=== PATIENT | female | born 1960 | race Caucasian/White ===

== ENCOUNTER 2020-10-31 12:16 | Emergency (ER) | payer OTHER ==
[2020-10-31 15:23] LABS: Absolute Lymphocytes (CBC) 2.5 K/uL (0.7-4.9); Hematocrit 48.8 % (36.0-45.0); Lymphocytes % 32.5 % (15.3-44.8); MPV 9.9 fL (7.6-11.3)
[2020-10-31] MEDS ORDERED: METHYLPREDNISOLONE 125 MG INJ ONE (15:30)
[2020-10-31] MEDS ORDERED: ALBUTEROL 2.5 MG/3 ML NEB SOL ONE (15:31)
[2020-10-31] MEDS ORDERED: IPRATROPIUM BROM 0.5MG/2.5ML ONE (15:31)
[2020-10-31] MEDS ORDERED: AMOX/K CLAV 875 MG TAB ONE (15:31)
[2020-10-31] MEDS ORDERED: predniSONE 20 MG TAB ONE (15:31)
[2020-10-31] MEDS ORDERED: PIPER/TAZO/NS 3.375gm 3.375 GM/100 ML BAG ONE (15:32)
--- NOTE | 2020-10-31 15:38 | RAD REPORT ---
EXAM DESCRIPTION: [place] Single View10/31/2020 3:07 pm CLINICAL HISTORY: Cough COMPARISON: 2010 FINDINGS: The lungs appear clear of acute infiltrate. The heart is normal size IMPRESSION: No acute abnormalities displayed
[2020-10-31 15:49] LABS: ALT/SGPT 28 U/L (12-78); AST/SGOT 22 U/L (15-37); Albumin 4.8 g/dL (3.4-5.0); Alkaline Phosphatase 57 U/L (45-117); BUN Blood Urea Nitrogen 11 mg/dL (7-18); Bicarbonate 26 mmol/L (21-32); Bilirubin Direct 0.1 mg/dL (0-0.2); Bilirubin Total 0.6 mg/dL (0.2-1.0); Glucose Level 89 mg/dL (74-106); Magnesium 2.4 mg/dL (1.8-2.4); NT PRO-BNP 181 pg/mL (<125); Potassium 3.9 mmol/L (3.5-5.1); Protein, Total 8.6 g/dL (6.4-8.2); Sodium Level 140 mmol/L (136-145); Troponin (Emerg Dept Use Only) < 0.02 ng/mL (0.0-0.045)
[2020-10-31] MEDS ORDERED: ONDANSETRON 4 MG/2 ML VIAL ONE (16:00)
[2020-10-31] MEDS ORDERED: MORPHINE 4 MG/ML SYR ONE (16:00)
[2020-10-31] MEDS ORDERED: LEVALBUTEROL 1.25 MG/3 ML NEB ONE (16:16)
--- NOTE | 2020-10-31 16:16 | EDPHYS ---
Physician Documentation [facility] Name: Shannan Singhr Age: 60 yrs Sex: Female : 1960 Arrival Date: 10/31/2020 Time: 12:18 Bed 5 Private MD: Robinson Cota HPI: 10/31 14:53 This 60 yrs old Female presents to ER via Ambulatory with complaints of danielle Breathing Difficulty, Decreased Appetite. Historical: - Allergies: 12:41 No Known Allergies; em - PMHx: 12:41 Chronic pain; em - PSHx: 12:41 Hysterectomy; Appendectomy; Cholecystectomy; Knee surgery; ankle sx; em - Immunization history:: Adult Immunizations up to date. - Social history:: Smoking status: Patient/guardian denies using tobacco, Stopped _ months ago 1. ROS: 14:53 Constitutional: Negative for fever, chills, and weight loss, Eyes: Negative for injury, danielle pain, redness, and discharge, ENT: Negative for injury, pain, and discharge, Neck: Negative for injury, pain, and swelling, Cardiovascular: Negative for chest pain, palpitations, and edema, Abdomen/GI: Negative for abdominal pain, nausea, vomiting, diarrhea, and constipation, Back: Negative for injury and pain, : Negative for injury, bleeding, discharge, and swelling, MS/Extremity: Negative for injury and deformity, Skin: Negative for injury, rash, and discoloration, Neuro: Negative for headache, weakness, numbness, tingling, and seizure, Psych: Negative for depression, anxiety, suicide ideation, homicidal ideation, and hallucinations, Allergy/Immunology: Negative for hives, rash, and allergies, Endocrine: Negative for neck swelling, polydipsia, polyuria, polyphagia, and marked weight changes, Hematologic/Lymphatic: Negative for swollen nodes, abnormal bleeding, and unusual bruising. 14:53 Respiratory: Positive for cough, shortness of breath, at rest. wheezing, inspiratory, expiratory. Exam: 14:53 Constitutional: This is a well developed, well nourished patient who is awake, alert, danielle and in no acute distress. Head/Face: Normocephalic, atraumatic. Eyes: Pupils equal round and reactive to light, extra-ocular motions intact. Lids and lashes normal. Conjunctiva and sclera are non-icteric and not injected. Cornea within normal limits. Periorbital areas with no swelling, redness, or edema. ENT: Nares patent. No nasal discharge, no septal abnormalities noted. Tympanic membranes are normal and external auditory canals are clear. Oropharynx with no redness, swelling, or masses, exudates, or evidence of obstruction, uvula midline. Mucous membranes moist. Neck: Trachea midline, no thyromegaly or masses palpated, and no cervical lymphadenopathy. Supple, full range of motion without nuchal rigidity, or vertebral point tenderness. No Meningismus. Chest/axilla: Normal chest wall appearance and motion. Nontender with no deformity. No lesions are appreciated. Cardiovascular: Regular rate and rhythm with a normal S1 and S2. No gallops, murmurs, or rubs. Normal PMI, no JVD. No pulse deficits. Abdomen/GI: Soft, non-tender, with normal bowel sounds. No distension or tympany. No guarding or rebound. No evidence of tenderness throughout. Back: No spinal tenderness. No costovertebral tenderness. Full range of motion. Female : Normal external genitalia. Skin: Warm, dry with normal turgor. Normal color with no rashes, no lesions, and no evidence of cellulitis. MS/ Extremity: Pulses equal, no cyanosis. Neurovascular intact. Full, normal range of motion. Neuro: Awake and alert, GCS 15, oriented to person, place, time, and situation. Cranial nerves II-XII grossly intact. Motor strength 5/5 in all extremities. Sensory grossly intact. Cerebellar exam normal. Normal gait. Psych: Awake, alert, with orientation to person, place and time. Behavior, mood, and affect are within normal limits. 14:53 Respiratory: the patient does not display signs of respiratory distress, Respirations: normal, no acute changes, Breath sounds: bronchial sounds, decreased breath sounds, rhonchi, stridor, is not appreciated, wheezing: inspiratory expiratory Respiratory rate: 18 15:41 ECG was reviewed by the Attending Physician. danielle 16:14 Musculoskeletal/extremity: ROM: no acute changes, intact in all extremities, full danielle active range of motion, full passive range of motion, Circulation is intact in all extremities. Sensation intact. Compartment Syndrome exam of affected extremity: is normal. DVT Exam: No signs of deep vein thrombosis. no pain, no swelling, no tenderness, negative Homans' sign noted on exam, no appreciated bluish discoloration, no erythema, no increased warmth. Vital Signs: 12:38 BP 172 / 77; Pulse 81; Resp 18; Temp 98.3(O); Pulse Ox 96% on R/A; Weight 69.4 kg; em Height 5 ft. 6 in. (167.64 cm); Pain 6/10; 14:40 BP 153 / 79; Pulse 58; Resp 17; Pulse Ox 99% on R/A; tw2 16:04 BP 141 / 77; Pulse 76; Resp 14; Pulse Ox 100% on Nebulizer Mask; tw2 17:00 BP 113 / 55; Pulse 94; Resp 21; Temp 98; Pulse Ox 98% ; bp 12:38 Body Mass Index 24.69 (69.40 kg, 167.64 cm) em MDM: 14:44 Patient medically screened. danielle 14:53 Differential diagnosis: Anemia Anxiety Reaction asthma, Bronchitis CHF exacerbation, danielle Chronic Obstructive Pulmonary Disease pneumonia, pulmonary edema, reactive airway disease, Sepsis. Antibiotic administration: The patient is discharged and will get outpatient antibiotics, Amoxicillin. The patient's Wells Deep Vein Thrombosis Score was calculated as follows: Total Score: 0-2 Pts- Low Risk. The patient's pulmonary embolism risk score was calculated as follows: Total Score: 0-2 points. This patient was found to be at low risk for a pulmonary embolism by using the Well's assessment criteria. Immunization status: Influenza vaccine: Data reviewed: vital signs, nurses notes, lab test result(s), EKG, radiologic studies. Data interpreted: engine monitor: rate is 81 beats/min, rhythm is regular, Pulse oximetry: on room air is 96 %. Test interpretation: by ED physician or midlevel provider: ECG, plain radiologic studies. Counseling: I had a detailed discussion with the patient and/or guardian regarding: the historical points, exam findings, and any diagnostic results supporting the discharge/admit diagnosis, lab results, radiology results. 10/31 14:49 Order name: Basic Metabolic Panel; Complete Time: 16:14 [facility] 10/31 14:49 Order name: CBC with Diff; Complete Time: 16:14 [facility] 10/31 14:49 Order name: LFT's; Complete Time: 16:14 [facility] 10/31 14:49 Order name: Magnesium; Complete Time: 16:14 [facility] 10/31 14:49 Order name: NT PRO-BNP; Complete Time: 16:14 [facility] 10/31 14:49 Order name: Troponin (emerg Dept Use Only); Complete Time: 16:14 [facility] 10/31 13:20 Order name: Chest Single View XRAY; Complete Time: 16:14 10/31 14:49 Order name: Blood Culture Adult (2) [facility] 10/31 14:49 Order name: COVID-19 [facility] 10/31 14:49 Order name: Flu; Complete Time: 16:14 [facility] 10/31 14:49 Order name: EKG; Complete Time: 14:50 [facility] 10/31 14:49 Order name: Cardiac monitoring; Complete Time: 15:59 [facility] 10/31 14:49 Order name: EKG - Nurse/Tech; Complete Time: 15:59 [facility] 10/31 14:49 Order name: IV Saline Lock; Complete Time: 15:15 [facility] 10/31 14:49 Order name: Labs collected and sent; Complete Time: 15:15 [facility] 10/31 14:49 Order name: O2 Per Protocol; Complete Time: 15:15 [facility] 10/31 14:49 Order name: O2 Sat Monitoring; Complete Time: 15:15 [facility] EC:41 Rate is 63 beats/min. Rhythm is regular. QRS [place] is Normal. NM interval is normal. QRS danielle interval is normal. QT interval is normal. No Q waves. T waves are Normal. No ST changes noted. Clinical impression: NSR w/ Non-specific ST/T Changes and No evidence of ischemia. Interpreted by me. Reviewed by me. Administered Medications: 12:47 Drug: Albuterol - atroVENT (3:1) (2.5 mg - 0.5 mg) 3 ml Route: Nebulizer; tw2 16:24 Follow up: Response: No adverse reaction tw2 15:35 Drug: SOLU-Medrol 125 mg Route: IVP; Site: right forearm; tw2 16:24 Follow up: Response: No adverse reaction tw2 15:38 Drug: predniSONE 20 mg Route: PO; tw2 16:24 Follow up: Response: No adverse reaction tw2 15:50 Drug: Zofran (Ondansetron) 4 mg Route: IVP; Site: right forearm; tw2 16:24 Follow up: Response: No adverse reaction; Nausea is decreased tw2 15:52 Drug: morphine 4 mg {Note: RASS 0.} Route: IVP; Site: right forearm; tw2 16:24 Follow up: Response: No adverse reaction; Pain is decreased; RASS: Alert and Calm (0) tw2 15:53 Drug: Zosyn 3.375 grams Route: IVPB; Infused Over: 60 mins; Site: right forearm; tw2 17:15 Follow up: Response: No adverse reaction; IV Status: Completed infusion; IV Intake: tw2 100ml 16:04 Drug: Augmentin 875 mg Route: PO; tw2 16:24 Follow up: Response: No adverse reaction tw2 16:04 Drug: Xopenex 1.25 mg Route: Inhalation; tw2 Disposition: 10/31/20 16:15 Discharged to Home. Impression: Dyspnea, Chronic obstructive pulmonary disease with (acute) exacerbation, Pneumonia due to other specified bacteria - aspiration, Tobacco abuse counseling, Tobacco use. - Condition is Fair. - Discharge Instructions: Chronic Bronchitis, Chronic Obstructive Pulmonary Disease, How to Use an Inhaler, Shortness of Breath, Steps to Quit Smoking, Smoking Hazards, Shortness of Breath, Xtiq-bv-Shax, Chronic Obstructive Pulmonary Disease Exacerbation, Chronic Obstructive Pulmonary Disease, Hhmg-gz-Kcid, Steps to Quit Smoking, Knaa-br-Yjbn, Cough, Adult, Nqxt-db-Iutg, How to Use a Nebulizer, How to Use an Inhaler, Kxcq-dx-Mbje. - Prescriptions for Augmentin 875- 125 mg Oral Tablet - take 1 tablet by ORAL route every 12 hours for 10 days; 20 tablet. Albuterol Sulfate 2.5 mg /3 mL (0.083 %) Inhalation Solution for Nebulization - inhale 1 unit by NEBULIZATION route every 8 hours As needed; 1 box. Prednisone 20 mg Oral Tablet - take 2 tablet by ORAL route once daily for 5 days; 10 tablet. Albuterol Sulfate 90 mcg/actuation - inhale 1-2 puff by INHALATION route every 4-6 hours; 1 Inhaler. Pepcid 20 mg Oral Tablet - take 1 tablet by ORAL route every 12 hours for 10 days; 20 tablet. - Medication Reconciliation Form, Thank You Letter, Antibiotic Education, Prescription Opioid Use form. - Follow up: Private Physician; When: 2 - 3 days; Reason: Recheck today's complaints, Continuance of care, Re-evaluation by your physician. Follow up: Jayy Ji; When: 2 - 3 days; Reason: Recheck today's complaints, Continuance of care, Re-evaluation by your physician. - Problem is new. - Symptoms have improved. Signatures: Dispatcher [employer] Robinson Morales MD MD cha Munoz, Edgar RN RN em Lynne Taylor RN RN 2 Thomas Martinez RN RN bp Corrections: (The following items were deleted from the chart) 17:23 16:15 10/31/2020 16:15 Discharged to Home. Impression: Dyspnea; Chronic obstructive bp pulmonary disease with (acute) exacerbation; Pneumonia due to other specified bacteria - aspiration; Tobacco abuse counseling; Tobacco use. Condition is Fair. Discharge Instructions: Chronic Bronchitis, Chronic Obstructive Pulmonary Disease, How to Use an Inhaler, Shortness of Breath, Steps to Quit Smoking, Smoking Hazards, Shortness of Breath, Moat-qq-Iqrf, Chronic Obstructive Pulmonary Disease Exacerbation, Chronic Obstructive Pulmonary Disease, Voty-xl-Qqrj, Steps to Quit Smoking, Fris-qi-Zshi, Cough, Adult, Hrhg-nn-Pfbk, How to Use a Nebulizer, How to Use an Inhaler, Wrtv-hz-Gsyu. Prescriptions for Augmentin 875-125 mg Oral Tablet - take 1 tablet by ORAL route every 12 hours for 10 days; 20 tablet, Albuterol Sulfate 2.5 mg /3 mL (0.083 %) Inhalation Solution for Nebulization - inhale 1 unit by NEBULIZATION route every 8 hours As needed; 1 box, Prednisone 20 mg Oral Tablet - take 2 tablet by ORAL route once daily for 5 days; 10 tablet, Albuterol Sulfate 90 mcg/actuation - inhale 1-2 puff by INHALATION route every 4-6 hours; 1 Inhaler. and Forms are Medication Reconciliation Form, Thank You Letter, Antibiotic Education, Prescription Opioid Use. Follow up: Private Physician; When: 2 - 3 days; Reason: Recheck today's complaints, Continuance of care, Re-evaluation by your physician. Follow up: Jayy Ji; When: 2 - 3 days; Reason: Recheck today's complaints, Continuance of care, Re-evaluation by your physician. Problem is new. Symptoms have improved. danielle
--- NOTE | 2020-10-31 16:16 | ER ---
Nurse's Notes [facility] Name: Shannan Leaver Age: 60 yrs Sex: Female : 1960 Arrival Date: 10/31/2020 Time: 12:18 Bed 5 Private MD: Diagnosis: Dyspnea;Chronic obstructive pulmonary disease with (acute) exacerbation;Pneumonia due to other specified bacteria-aspiration;Tobacco abuse counseling;Tobacco use Presentation: 10/31 12:38 Chief complaint: Patient states: had a procedure for chronic pain with ketamine on em Thursday, believes pt had aspirated during procedure, pt reports shortness of breath and cough, denies fever. Coronavirus screen: Client denies travel out of the [place] in the last 14 days. Ebola Screen: Patient negative for fever greater than or equal to 101.5 degrees Fahrenheit, and additional compatible Ebola Virus Disease symptoms Patient denies exposure to infectious person. Patient denies travel to an Ebola-affected area in the 21 days before illness onset. No symptoms or risks identified at this time. Initial Sepsis Screen: Does the patient meet any 2 criteria? No. Patient's initial sepsis screen is negative. Does the patient have a suspected source of infection? No. Patient's initial sepsis screen is negative. Risk Assessment: Do you want to hurt yourself or someone else? Patient reports no desire to harm self or others. Onset of symptoms was October 31, 2020. Onset of symptoms was October 29, 2020. 12:38 Method Of Arrival: Ambulatory em 12:38 Acuity: GEORGETTE 3 em Triage Assessment: 12:40 General: Appears in no apparent distress. comfortable, Behavior is cooperative, bp appropriate for age, anxious. Pain: Denies pain. EENT: No deficits noted. Neuro: No deficits noted. Cardiovascular: No deficits noted. Respiratory: Onset: The symptoms/episode began/occurred yesterday, the patient reports symptoms have resolved. Respiratory: Breath sounds are coarse bilaterally. Respiratory: Airway is patent Respiratory effort is even, unlabored. GI: No signs and/or symptoms were reported involving the gastrointestinal system. : No signs and/or symptoms were reported regarding the genitourinary system. Derm: No deficits noted. Musculoskeletal: No deficits noted. Historical: - Allergies: 12:41 No Known Allergies; em - PMHx: 12:41 Chronic pain; em - PSHx: 12:41 Hysterectomy; Appendectomy; Cholecystectomy; Knee surgery; ankle sx; em - Immunization history:: Adult Immunizations up to date. - Social history:: Smoking status: Patient/guardian denies using tobacco, Stopped _ months ago 1. Screenin:24 Abuse screen: Denies threats or abuse. Nutritional screening: No deficits noted. tw2 Tuberculosis screening: No symptoms or risk factors identified. Fall Risk None identified. Assessment: 14:30 General: Appears in no apparent distress. slender, well groomed, Behavior is calm, tw2 cooperative, appropriate for age. General: Appears Behavior is talkative. Pain: Denies pain. Neuro: Level of Consciousness is awake, alert, obeys commands, Oriented to person, place, time, situation. Cardiovascular: Heart tones S1 S2 Capillary refill < 3 seconds Rhythm is regular. Respiratory: Airway is patent Respiratory effort is even, unlabored, Respiratory pattern is regular, symmetrical. Respiratory: Breath sounds are clear bilaterally. Respiratory: Reports shortness of breath at rest. GI: No signs and/or symptoms were reported involving the gastrointestinal system. Abdomen is flat, Bowel sounds present X 4 quads. : No signs and/or symptoms were reported regarding the genitourinary system. EENT: No signs and/or symptoms were reported regarding the EENT system. Derm: No signs and/or symptoms reported regarding the dermatologic system. Musculoskeletal: Range of motion: intact in all extremities. 15:50 Reassessment: pt states "i take a lot of pain medicine for chronic pain and i have been tw2 waiting and really need something, i know yall cant give me what i take but just anything until i get home", provider notified, medicated as ordered. 16:05 Reassessment: Patient appears in no apparent distress at this time. No changes from tw2 previously documented assessment. Patient and/or family updated on plan of care and expected duration. Pain level reassessed. Patient is alert, oriented x 3, equal unlabored respirations, skin warm/dry/pink. 17:21 Reassessment: PT D/C HOME AMBULATORY, DX WITH DYSPNEA AND PNEUMONIA. bp Vital Signs: 12:38 BP 172 / 77; Pulse 81; Resp 18; Temp 98.3(O); Pulse Ox 96% on R/A; Weight 69.4 kg; em Height 5 ft. 6 in. (167.64 cm); Pain 6/10; 14:40 BP 153 / 79; Pulse 58; Resp 17; Pulse Ox 99% on R/A; tw2 16:04 BP 141 / 77; Pulse 76; Resp 14; Pulse Ox 100% on Nebulizer Mask; tw2 17:00 BP 113 / 55; Pulse 94; Resp 21; Temp 98; Pulse Ox 98% ; bp 12:38 Body Mass Index 24.69 (69.40 kg, 167.64 cm) em ED Course: 12:18 Patient arrived in ED. ag5 12:41 Triage completed. em 12:41 Arm band placed on. em 14:07 Lynne Taylor, FATOU is Primary Nurse. tw2 14:30 Bed in low position. Call light in reach. monitoring engineer on. Pulse ox on. NIBP on. tw2 Warm blanket given. 14:44 Robinson Fajardo MD is Attending Physician. danielle 15:05 Chest Single View XRAY In Process Unspecified. EDMS 15:10 Inserted saline lock: 22 gauge in right forearm, using aseptic technique. Blood tw2 collected. 15:47 Blood Culture Adult (2) Sent. tw2 16:15 Jayy Ji MD is Referral Physician. danielle 16:23 Awaiting: completion of IV abx prior to discharge. tw2 17:00 No provider procedures requiring assistance completed. IV discontinued, intact, bp bleeding controlled, No redness/swelling at site. Pressure dressing applied. Administered Medications: 12:47 Drug: Albuterol - atroVENT (3:1) (2.5 mg - 0.5 mg) 3 ml Route: Nebulizer; tw2 16:24 Follow up: Response: No adverse reaction tw2 15:35 Drug: SOLU-Medrol 125 mg Route: IVP; Site: right forearm; tw2 16:24 Follow up: Response: No adverse reaction tw2 15:38 Drug: predniSONE 20 mg Route: PO; tw2 16:24 Follow up: Response: No adverse reaction tw2 15:50 Drug: Zofran (Ondansetron) 4 mg Route: IVP; Site: right forearm; tw2 16:24 Follow up: Response: No adverse reaction; Nausea is decreased tw2 15:52 Drug: morphine 4 mg {Note: RASS 0.} Route: IVP; Site: right forearm; tw2 16:24 Follow up: Response: No adverse reaction; Pain is decreased; RASS: Alert and Calm (0) tw2 15:53 Drug: Zosyn 3.375 grams Route: IVPB; Infused Over: 60 mins; Site: right forearm; tw2 17:15 Follow up: Response: No adverse reaction; IV Status: Completed infusion; IV Intake: tw2 100ml 16:04 Drug: Augmentin 875 mg Route: PO; tw2 16:24 Follow up: Response: No adverse reaction tw2 16:04 Drug: Xopenex 1.25 mg Route: Inhalation; tw2 Intake: 17:15 IV: 100ml; Total: 100ml. tw2 Outcome: 16:15 Discharge ordered by . danielle 17:00 Discharged to home ambulatory. bp 17:00 Condition: stable 17:00 Discharge instructions given to patient, Instructed on discharge instructions, follow up and referral plans. medication usage, benefits of quitting smoking, Demonstrated understanding of instructions, follow-up care, medications, Prescriptions given X 6 17:23 Patient left the ED. bp Addendum: 11/02/2020 13:18 Addendum: COVID-19 Result: Negative result given to RN to notify pt. Notified pt of d m5 negative COVID 19 swab results. Pt advised that even with a negative test result they should remain in isolation until symptom free for 3 days without medication. Pt also advised to return to the ED for worsening symptoms. Signatures: Dispatcher [employer] Billie Valdez RN RN [id number] Robinson Fajardo MD MD cha Munoz, Edgar, RN RN em Wise, Tara, RN RN 2 Thomas Martinez RN RN bp Gaskin, Ajare [facility]
--- NOTE | 2020-10-31 19:13 | EKG ---
Test Date: 2020-10-31 Test Time: 15:34:55 Showroom Consultant: BUD MEASUREMENT RESULTS: Intervals: Rate: 63 AK: 140 QRSD: 82 QT: 388 QTc: 397 [place]uster: P: 69 AK: 140 QRS: 56 T: 59 INTERPRETIVE STATEMENTS: Sinus rhythm with marked sinus arrhythmia Otherwise normal ECG Compared to ECG 02/26/2012 18:28:37 No significant changes Electronically Signed On 10-31-20 19:12:32 STORE PROTECTION SPECIALIST by Khai Muse
[2020-11-02 04:06] VITALS: BP 113/55; TEMP 98; O2SAT 98
== END 2020-10-31 17:23 | disposition home or self-care (01) ==
LOC: ER 12:16
DX: J44.0 Chronic obstructive pulmonary disease with (acute) lower respiratory infection (principal); J15.8 Pneumonia due to other specified bacteria; J44.1 Chronic obstructive pulmonary disease with (acute) exacerbation; Z20.828 Contact with and (suspected) exposure to other viral communicable diseases; Z72.0 Tobacco use; Z71.6 Tobacco abuse counseling
CPT/HCPCS: 96365; 93005; 87040 ×2; 85025; 80048; 36415; 83735; 80076; 84484; 83880; 87804 ×2; 71045; 96375; 99285; U0002; J2543; J2930; J2405; J7512

== ENCOUNTER 2021-01-15 13:05 | Emergency (ER) | payer OTHER ==
[2021-01-15] MEDS ORDERED: FENTANYL CITR 100 MCG/2 ML ONE (14:42)
[2021-01-15] MEDS ORDERED: ONDANSETRON 4 MG/2 ML VIAL ONE (14:42)
[2021-01-15] MEDS ORDERED: NA CHLORIDE 0.9% 1,000 ML ONE (14:42)
[2021-01-15 14:52] LABS: Absolute Lymphocytes (CBC) 2.5 K/uL (0.7-4.9); Basophils % 1.3 % (0-1.3); Hematocrit 42.2 % (36.0-45.0); Lymphocytes % 41.5 % (15.3-44.8); MPV 10.3 fL (7.6-11.3); RBC Red Blood Cell Count 4.46 M/uL (3.86-4.86)
--- NOTE | 2021-01-15 15:14 | RAD REPORT ---
EXAM DESCRIPTION: CT - Abdomen Pelvis W Contrast - 01/15/2021 2:50 pm CLINICAL HISTORY: ABD PAIN COMPARISON: CT ABD PELVIS W CONTRAST dated 04/15/2009 TECHNIQUE: Biphasic, helical CT imaging of the abdomen and pelvis was performed following 100 ml non -ionic IV contrast. No oral contrast administered. All CT scans are performed using dose optimization technique as appropriate and may include automated exposure control or mA/KV adjustment according to patient size. FINDINGS: No suspicious findings in the lung bases. Mild diffuse fatty infiltration of the liver with no focal liver lesion. No portal vein abnormality s een. Spleen and pancreas show no suspicious findings peer cholecystectomy clips are present. No bilia ry tree dilatation. Symmetric renal function is seen with no hydronephrosis or suspicious renal mass. No pyelonephritis o r acute parenchymal process. No bladder abnormalities. No adrenal abnormalities. Uterus is absent. Ov hamilton are absent or atrophic. No gastric dilatation or wall thickening. No small bowel abnormality. Moderate stool volume throughou t the colon. Rectosigmoid anastomosis shows no suspicious finding. Appendix is absent. No free air, free fluid or inflammatory stranding. No mass or bulky lymphadenopathy. Prominent fat i n the right inguinal canal with no edematous or congested fat. No suspicious bony findings. Lower lumbar disc and bone degenerative changes are present. IMPRESSION: Contrast enhanced CT abdomen and pelvis showing no acute or emergent finding. Nonacute findings detailed in the body of the report.
[2021-01-15 15:15] LABS: Albumin 4.1 g/dL (3.4-5.0); Bilirubin Direct 0.1 mg/dL (0-0.2); Bilirubin Total 0.6 mg/dL (0.2-1.0); Potassium 3.8 mmol/L (3.5-5.1); Protein, Total 7.4 g/dL (6.4-8.2)
[2021-01-15] MEDS ORDERED: MEPERIDINE HCL 25 MG/ML SYR ONE (15:32)
[2021-01-15 15:40] LABS: Urine Blood NEGATIVE (NEG); Urine Glucose NEGATIVE (NEG); Urine Protein NEGATIVE (NEG)
--- NOTE | 2021-01-15 15:46 | EDPHYS ---
Physician Documentation [facility] Name: Shannan Shore Age: 60 yrs Sex: Female : 1960 Arrival Date: 01/15/2021 Time: 13:08 Bed 25 Private MD: ED Physician Stefano An HPI: 01/15 15:56 This 60 yrs old Female presents to ER via Ambulatory with complaints of kb Abdominal Pain. 15:56 The patient presents with abdominal pain in the lower abdomen. Onset: The kb symptoms/episode began/occurred 2 week(s) ago. The symptoms do not radiate. Associated signs and symptoms: none. The symptoms are described as constant. Modifying factors: The symptoms are alleviated by nothing, the symptoms are aggravated by nothing. Severity of pain: At its worst the pain was moderate in the emergency department the pain is unchanged. The patient has not experienced similar symptoms in the past. The patient has been recently seen by a physician:. Historical: - Allergies: 13:38 PENICILLINS; iw 13:38 Levaquin; iw - Home Meds: 13:38 morphine 30 mg Oral TbER 1 tab every 8 hours [Active]; gabapentin 100 mg oral cap daily iw [Active]; - PMHx: 13:38 Chronic pain; complex regional pain syndrome; iw - PSHx: 13:38 Hysterectomy; Appendectomy; Cholecystectomy; Knee surgery; ankle sx; iw - Immunization history:: Adult Immunizations Pneumococcal vaccine is not up to date, Flu vaccine is up to date. - Social history:: Smoking status: Patient/guardian denies using tobacco, the patient reports quitting approximately 20 years ago. ROS: 15:50 Constitutional: Negative for fever, chills, and weight loss, Cardiovascular: Negative kb for chest pain, palpitations, and edema, Respiratory: Negative for shortness of breath, cough, wheezing, and pleuritic chest pain, Back: Negative for injury and pain, MS/Extremity: Negative for injury and deformity, Skin: Negative for injury, rash, and discoloration, Neuro: Negative for headache, weakness, numbness, tingling, and seizure. 15:50 Abdomen/GI: Positive for abdominal pain, Negative for nausea, vomiting, and diarrhea. Exam: 15:50 Constitutional: This is a well developed, well nourished patient who is awake, alert, kb and in no acute distress. Head/Face: Normocephalic, atraumatic. Chest/axilla: Normal chest wall appearance and motion. Nontender with no deformity. No lesions are appreciated. Cardiovascular: Regular rate and rhythm with a normal S1 and S2. No gallops, murmurs, or rubs. Normal PMI, no JVD. No pulse deficits. Respiratory: Lungs have equal breath sounds bilaterally, clear to auscultation and percussion. No rales, rhonchi or wheezes noted. No increased work of breathing, no retractions or nasal flaring. Skin: Warm, dry with normal turgor. Normal color with no rashes, no lesions, and no evidence of cellulitis. MS/ Extremity: Pulses equal, no cyanosis. Neurovascular intact. Full, normal range of motion. Neuro: Awake and alert, GCS 15, oriented to person, place, time, and situation. Cranial nerves II-XII grossly intact. Motor strength 5/5 in all extremities. Sensory grossly intact. Cerebellar exam normal. Normal gait. 15:50 Abdomen/GI: Inspection: abdomen appears normal, Bowel sounds: normal, in all quadrants, Palpation: soft, in all quadrants, mild abdominal tenderness, in the right lower quadrant and left lower quadrant. Vital Signs: 13:34 BP 147 / 82; Pulse 89; Resp 16; Temp 97.9; Pulse Ox 100% on R/A; Weight 69.85 kg; iw Height 5 ft. 6 in. (167.64 cm); Pain 8/10; 16:00 BP 142 / 80; Pulse 80; Resp 16; Pulse Ox 98% on R/A; zb 13:34 Body Mass Index 24.86 (69.85 kg, 167.64 cm) iw MDM: 14:05 Patient medically screened. kb 15:51 Data reviewed: vital signs, nurses notes. Data interpreted: Pulse oximetry: on room air kb is 100 %. Interpretation: normal. 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 01/15 14:17 Order name: Basic Metabolic Panel; Complete Time: 15:21 kb 01/15 14:17 Order name: CBC with Diff; Complete Time: 14:56 kb 01/15 14:17 Order name: Hepatic Function; Complete Time: 15:21 kb 01/15 14:17 Order name: Lipase; Complete Time: 15:21 kb 01/15 14:17 Order name: CT Abd/Pelvis - IV Contrast Only; Complete Time: 15:21 kb 01/15 14:19 Order name: Urine Dipstick--Ancillary (enter results); Complete Time: 15:42 eb 01/15 14:17 Order name: IV Saline Lock; Complete Time: 14:39 kb 01/15 14:17 Order name: Labs collected and sent; Complete Time: 14:39 kb Administered Medications: 14:20 Drug: fentaNYL (PF) 50 mcg Route: IVP; Site: right forearm; zb 15:18 Follow up: Response: No adverse reaction; Pain is unchanged, physician notified; RASS: zb Restless (+1) 14:22 Drug: Zofran (Ondansetron) 4 mg Route: IVP; Site: right forearm; zb 15:18 Follow up: Response: No adverse reaction zb 14:25 Drug: NS 0.9% 1000 ml Route: IV; Rate: 1000 ml; Site: right forearm; zb 16:00 Follow up: Response: No adverse reaction; IV Status: Completed infusion; IV Intake: zb 1000ml 15:16 Drug: Demerol 25 mg Route: IVP; Site: right forearm; zb 16:00 Follow up: Response: No adverse reaction; Pain is decreased; RASS: Alert and Calm (0) zb Disposition: 16:55 Co-signature as Attending Physician, Stefano An MD. rn Disposition: 01/15/21 15:45 Discharged to Home. Impression: Lower abdominal pain, unspecified. - Condition is Stable. - Discharge Instructions: Abdominal Pain, Adult, [id number]. - Medication Reconciliation Form, Thank You Letter, Antibiotic Education, Prescription Opioid Use form. - Follow up: Emergency Department; When: As needed; Reason: Worsening of condition. Follow up: Private Physician; When: 2 - 3 days; Reason: Recheck today's complaints, Continuance of care, Re-evaluation by your physician. Signatures: Dispatcher [employer] EDMS Emely Bardales, STRAIGHTEDGE MAN-C STRAIGHTEDGE MAN-Ckb Megan Bueno, RN Stefano Casiano MD MD rn Brown, Zipporah, RN RN zb Corrections: (The following items were deleted from the chart) 16:04 15:45 01/15/2021 15:45 Discharged to Home. Impression: Lower abdominal pain, zb unspecified. Condition is Stable. Forms are Medication Reconciliation Form, Thank You Letter, Antibiotic Education, Prescription Opioid Use. Follow up: Emergency Department; When: As needed; Reason: Worsening of condition. Follow up: Private Physician; When: 2 - 3 days; Reason: Recheck today's complaints, Continuance of care, Re-evaluation by your physician. kb
--- NOTE | 2021-01-15 15:46 | ER ---
Nurse's Notes [facility] Name: Shannan Shore Age: 60 yrs Sex: Female : 1960 Arrival Date: 01/15/2021 Time: 13:08 Bed 25 Private MD: Diagnosis: Lower abdominal pain, unspecified Presentation: 01/15 13:34 Chief complaint: Patient states: has been having pain in lower abd for past two weeks, iw worse sine Thursday . has been constipated, last BM was yesterday but only a small amount, has hx of cystitis. Coronavirus screen: At this time, the client does not indicate any symptoms associated with coronavirus-19. Ebola Screen: Patient negative for fever greater than or equal to 101.5 degrees Fahrenheit, and additional compatible Ebola Virus Disease symptoms Patient denies exposure to infectious person. Patient denies travel to an Ebola-affected area in the 21 days before illness onset. No symptoms or risks identified at this time. Initial Sepsis Screen: Does the patient meet any 2 criteria? No. Patient's initial sepsis screen is negative. Does the patient have a suspected source of infection? No. Patient's initial sepsis screen is negative. Risk Assessment: Do you want to hurt yourself or someone else? Patient reports no desire to harm self or others. Onset of symptoms was January 08, 2021. 13:34 Method Of Arrival: Ambulatory iw 13:34 Acuity: GEORGETTE 3 iw Historical: - Allergies: 13:38 PENICILLINS; iw 13:38 Levaquin; iw - Home Meds: 13:38 morphine 30 mg Oral TbER 1 tab every 8 hours [Active]; gabapentin 100 mg oral cap daily iw [Active]; - PMHx: 13:38 Chronic pain; complex regional pain syndrome; iw - PSHx: 13:38 Hysterectomy; Appendectomy; Cholecystectomy; Knee surgery; ankle sx; iw - Immunization history:: Adult Immunizations Pneumococcal vaccine is not up to date, Flu vaccine is up to date. - Social history:: Smoking status: Patient/guardian denies using tobacco, the patient reports quitting approximately 20 years ago. Screenin:46 Abuse screen: Denies threats or abuse. Denies injuries from another. Nutritional zb screening: No deficits noted. Tuberculosis screening: No symptoms or risk factors identified. Fall Risk None identified. Assessment: 14:07 Reassessment: ECP at bedside. zb 14:44 General: Appears in no apparent distress. uncomfortable, Behavior is cooperative, zb anxious. Pain: Complains of pain in suprapubic area and left lower quadrant Pain radiates to suprapubic area Pain currently is 8 out of 10 on a pain scale. Quality of pain is described as burning, radiating, sharp, Pain began 2-3 days ago. Is continuous, Alleviated by nothing. Noted to be grimacing, guarding, moaning, Also complains of nausea. Neuro: Level of Consciousness is awake, alert, obeys commands, Oriented to person, place, time, situation. Cardiovascular: Capillary refill < 3 seconds in bilateral Patient's skin is warm and dry. Respiratory: Airway is patent Respiratory effort is even, unlabored, Respiratory pattern is regular, symmetrical. GI: Abdomen is round non-distended, Bowel sounds present X 4 quads. Abd is soft and non tender X 4 quads. Reports lower abdominal pain, bloating, constipation, nausea. : No signs and/or symptoms were reported regarding the genitourinary system. EENT: No signs and/or symptoms were reported regarding the EENT system. Derm: Skin is intact, Skin is dry, Skin is normal, Skin temperature is warm. Musculoskeletal: Range of motion: intact in all extremities. 15:12 Reassessment: Patient and/or family updated on plan of care and expected duration. Pain zb level reassessed. Patient is alert, oriented x 3, equal unlabored respirations, skin warm/dry/pink. patient states that she still in a lot of pain. notified ECP. Vital Signs: 13:34 BP 147 / 82; Pulse 89; Resp 16; Temp 97.9; Pulse Ox 100% on R/A; Weight 69.85 kg; iw Height 5 ft. 6 in. (167.64 cm); Pain 8/10; 16:00 BP 142 / 80; Pulse 80; Resp 16; Pulse Ox 98% on R/A; zb 13:34 Body Mass Index 24.86 (69.85 kg, 167.64 cm) iw ED Course: 13:08 Patient arrived in ED. mr 13:36 Triage completed. iw 13:39 Arm band placed on. iw 13:59 Emely Bardales FNP-C [facility] kb 13:59 Stefano An MD is Attending Physician. kb 14:07 Amy Vera RN is Primary Nurse. zb 14:47 Patient has correct armband on for positive identification. Bed in low position. Call zb light in reach. Side rails up X 1. Pulse ox on. NIBP on. Door closed. Noise minimized. Warm blanket given. 14:50 CT Abd/Pelvis - IV Contrast Only In Process Unspecified. EDMS 16:00 IV discontinued, intact, bleeding controlled, No redness/swelling at site. Pressure zb dressing applied. 16:03 No provider procedures requiring assistance completed. zb Administered Medications: 14:20 Drug: fentaNYL (PF) 50 mcg Route: IVP; Site: right forearm; zb 15:18 Follow up: Response: No adverse reaction; Pain is unchanged, physician notified; RASS: zb Restless (+1) 14:22 Drug: Zofran (Ondansetron) 4 mg Route: IVP; Site: right forearm; zb 15:18 Follow up: Response: No adverse reaction zb 14:25 Drug: NS 0.9% 1000 ml Route: IV; Rate: 1000 ml; Site: right forearm; zb 16:00 Follow up: Response: No adverse reaction; IV Status: Completed infusion; IV Intake: zb 1000ml 15:16 Drug: Demerol 25 mg Route: IVP; Site: right forearm; zb 16:00 Follow up: Response: No adverse reaction; Pain is decreased; RASS: Alert and Calm (0) zb Intake: 16:00 IV: 1000ml; Total: 1000ml. zb Outcome: 15:45 Discharge ordered by . kb 16:00 Discharged to home ambulatory. zb 16:00 Condition: good 16:00 Discharge instructions given to patient, Instructed on discharge instructions, follow up and referral plans. Demonstrated understanding of instructions, follow-up care. 16:04 Patient left the ED. zb Signatures: Dispatcher [employer] EDMS Emely Bardales FNP-C FNP-Bryce Erin Sheppard Megan Bueno, RN FATOU iw Amy Vera RN RN zmikey
[2021-01-15 16:26] VITALS: TEMP 97.9
[2021-01-15 16:27] VITALS: BP 142/80; O2SAT 98
== END 2021-01-15 16:04 | disposition home or self-care (01) ==
LOC: ER 13:05
DX: R10.30 Lower abdominal pain, unspecified (principal); G89.29 Other chronic pain; Z88.0 Allergy status to penicillin; Z88.1 Allergy status to other antibiotic agents
CPT/HCPCS: 96361; 85025; 80048; 36415; 82565; 80076; 81003; 83690; 74177; 96375; 96374; 99283; Q9967; J3010; J2175; J7030; J2405

== ENCOUNTER 2024-09-25 12:25 | Emergency (ER) | payer OTHER ==
--- OUTSIDE RECORDS SUMMARY | 2024-09-25 12:28 | XMS REPORT | Continuity of Care Document ---
Author Name Unknown Address [address] [facility] [address] [place], [place] [id number] [place] [address] 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 Name Role Phone Michelle Conte Attending Clinician Unavail able [email or web address]_S Attending Clinician Unavaila ble [email or web address]_S Admitting Clinician Unavaila ble Payers Payer Name Policy Type Policy Number Effective Date Expirati on Date Source [place]IC[place]: CED [facility] [id number] 2020 00:00:00 MEDICAL [employer] - RESERVE NATIONAL - INDIVIDUAL NON COMPREHENSIVE LIMITED BENEFITS [id number] Problems Condition Name Condition Details Condition Category Status Onset Date Resolution Date Last Treatment Date Treating Clinician Comments Source [id number] Essential hypertensi on Problem Common [facility] [id number] Other obesity due to excess calories Problem [facility] [id number] Hepatic steatosis Problem [facility] [id number] Chronic pain syndrome Problem [facility] [id number] Mixed hyperlipid emia Problem [facility] Interstiti al cystitis Interstiti al cystitis Problem [facility] [id number] EVELYN (generaliz ed anxiety disorder) Problem [facility] [id number] Body mass index [BMI] 30.0-30.9, adult Problem [facility] [id number] Complex regional pain syndrome type 1 of left lower extremity Problem [facility] [id number] Cigarette nicotine dependence without complicati on Problem [facility] [id number] Vitamin D deficiency Problem [facility] Tobacco user Nicotine dependence with current use Problem [facility] Allergies, Adverse Reactions, Alerts Allergy Name Allergy Type Status Severity Reaction(s) Onset Date Inactive Date Treating Clinician Comments Source [id number] Drug allergy Active Unknown [facility] Social History Social Habit Start Date Stop Date Quantity Comments Source History of Tobacco Use 2000-11-15 00:00:00 Current Smoker [facility] Sex Assigned At [facility] Smoking Status Start Date Stop Date Source Current Smoker 2024-06-29 00:00:00 [facility] Medications Ordered Medication Name Filled Medication Name Start Date Stop Date Current Medication? Ordering Clinician Indication Dosage Frequency Signature (SIG) Comments Components Source Ciprofloxac in HCl 500 MG Ciprofloxac in HCl 500 MG 2023-0 8-14 00:00: 00 No 1{table t} BID Ciprofloxa mason HCl 500 MG Lisinopril 20 MG Lisinopril 20 MG 2023-0 5-17 00:00: 00 No 1{table t} QD Lisinopril 20 MG Metoprolol Succinate ER 25 MG Metoprolol Succinate ER 25 MG 4-0 5-17 00:00: 00 No 1{table t} QD Metoprolol Succinate ER 25 MG Lisinopril- hydroCHLORO thiazide 10-12.5 MG Lisinopril- hydroCHLORO thiazide 10-12.5 MG 4-0 3-26 00:00: 00 No 1{table t} QD Lisinopril -hydroCHLO ROthiazide 10-12.5 MG Pravastatin Sodium 20 MG Pravastatin Sodium 20 MG No 1{table t} QD Pravastati n Sodium 20 MG Amitriptyli ne HCl 50 MG Amitriptyli ne HCl 50 MG No 1{table t_at_be dtime} QD Amitriptyl ine HCl 50 MG Morphine Sulfate 30 MG Morphine Sulfate 30 MG No 1{table t_as_ne eded} TID Morphine Sulfate 30 MG Aspirin 81 MG Aspirin 81 MG No 1{capsu le} QD Aspirin 81 MG Aloe Vera 500 MG Aloe Vera 500 MG No Aloe Vera 500 MG MS Contin 30 MG MS Contin 30 MG No 1{table t} BID MS Contin 30 MG tiZANidine HCl 4 MG tiZANidine HCl 4 MG No tiZANidine HCl 4 MG Acetaminoph en 500 MG Acetaminoph en 500 MG No 1{table t_as_ne eded} QID Acetaminop hen 500 MG Amitriptyli ne HCl 100 MG Amitriptyli ne HCl 100 MG No QD Amitriptyl ine HCl 100 MG Stool Softener 250 MG Stool Softener 250 MG No 1{capsu le_as_n eeded} QD Stool Softener 250 MG Vitamin D3 75 MCG (3000 UT) Vitamin D3 75 MCG (3000 UT) No 1{table t} QD Vitamin D3 75 MCG (3000 UT) Immunizations Ordered Immunization Name Filled Immunization Name Date Status Comments Source Afluria (IIV4) - 3 years and older - SDS - 0.5mL Afluria (IIV4) - 3 years and older - SDS - 0.5mL Unknown Completed [facility] Pneumovax (PPSV23) Pneumovax (PPSV23) Unknown Completed [facility] Afluria (IIV4) - 3 years and older - SDS - 0.5mL Afluria (IIV4) - 3 years and older - SDS - 0.5mL Unknown Completed [facility] Pneumovax (PPSV23) Pneumovax (PPSV23) Unknown Completed [facility] Afluria (IIV4) - 3 years and older - SDS - 0.5mL Afluria (IIV4) - 3 years and older - SDS - 0.5mL Unknown Completed [facility] [place] Pneumovax (PPSV23) Pneumovax (PPSV23) Unknown Completed [facility] Afluria (IIV4) - 3 years and older - SDS - 0.5mL Afluria (IIV4) - 3 years and older - SDS - 0.5mL Unknown Completed [facility] Pneumovax (PPSV23) Pneumovax (PPSV23) Unknown Completed [facility] Afluria (IIV4) - 3 years and older - SDS - 0.5mL Afluria (IIV4) - 3 years and older - SDS - 0.5mL Unknown Completed [facility] Pneumovax (PPSV23) Pneumovax (PPSV23) Unknown Completed [facility] Vital Signs Vital Name Observation Time Observation Value Comments S ource height 2024-06-29 10:40:00 67 [in_i] Commo n [facility] weight 2024-06-29 10:40:00 175.4 [lb_av] Co [facility] temperature 2024-06-29 10:40:00 98.5 [degF] Com mon [facility] bmi 2024-06-29 10:40:00 27.47 kg/m2 Comm on [facility] oximetry 2024-06-29 10:40:00 97 % Commo n [facility] respiratory rate 2024-06-29 10:40:00 17 /min [facility] blood pressure systolic 2024-06-29 10:40:00 140 mm[Hg] [facility] blood pressure diastolic 2024-06-29 10:40:00 78 mm[Hg] [facility] height 2024-06-10 11:00:00 67 [in_i] Commo n [facility] weight 2024-06-10 11:00:00 179.8 [lb_av] Co [facility] temperature 2024-06-10 11:00:00 98 [degF] Comm on [facility] bmi 2024-06-10 11:00:00 28.16 kg/m2 Comm on [facility] oximetry 2024-06-10 11:00:00 98 % Commo n [facility] respiratory rate 2024-06-10 11:00:00 17 /min [facility] blood pressure systolic 2024-06-10 11:00:00 112 mm[Hg] [facility] blood pressure diastolic 2024-06-10 11:00:00 58 mm[Hg] [facility] height 2024-03-01 13:20:00 67 [in_i] Commo n [facility] weight 2024-03-01 13:20:00 188 [lb_av] Comm on [facility] temperature 2024-03-01 13:20:00 99.4 [degF] Com mon [facility] bmi 2024-03-01 13:20:00 29.44 kg/m2 Comm on [facility] oximetry 2024-03-01 13:20:00 100 % Commo n [facility] respiratory rate 2024-03-01 13:20:00 17 /min [facility] blood pressure systolic 2024-03-01 13:20:00 160 mm[Hg] [facility] blood pressure diastolic 2024-03-01 13:20:00 90 mm[Hg] [facility] Encounters Start Date/Time End Date/Time Encounter Type Admission Type Attending [facility] Care Facility Care Department Encounter ID Source 2024-03-01 13:06:01 [facility] [id number] [facility] 2024-02-09 08:39:00 Outpatient Dg Michelle [facility] [id number] [facility] 2024-06-29 00:00:00 2024-06-29 00:00:00 OFFICE VISIT [facility]AB [facility] [id number] [facility] 2024-06-28 00:00:00 2024-06-28 00:00:00 [facility]EL[facility] [id number] [facility] 2024-06-15 00:00:00 2024-06-15 00:00:00 (TEL) [facility] [id number] [facility] 2024-06-10 00:00:00 2024-06-10 00:00:00 OFFICE VISIT ESTAB PT LEVEL 4 [facility] [id number] [facility] 2024-06-02 00:00:00 2024-06-02 00:00:00 (TEL) [facility] [id number] [facility] 2024-05-27 00:00:00 2024-05-27 00:00:00 (TEL) [facility] [id number] [facility] 2024-04-29 00:00:00 2024-04-29 00:00:00 (TEL) [facility] [id number] [facility] 2024-04-26 00:00:00 2024-04-26 00:00:00 (TEL) [facility] [id number] [facility] 2024-04-08 00:00:00 2024-04-08 00:00:00 (TEL) [facility] [id number] [facility] [place] 2024-04-05 00:00:00 2024-04-05 00:00:00 (TEL) [facility] [id number] [facility] 2024-04-01 00:00:00 2024-04-01 00:00:00 (TEL) [facility] [id number] [facility] 2024-03-01 00:00:00 2024-03-01 00:00:00 OFFICE VISIT ESTAB PT LEVEL 4 [facility] [id number] [facility] [place] 2024-03-01 00:00:00 2024-03-01 00:00:00 INIT ANNUAL [facility] VISIT [facility] STL[facility] [id number] [facility] 2024-02-10 00:00:00 2024-02-10 00:00:00 Outpatient [email or web address]_Ka kam_Leisa [facility] [id number] [facility]
[2024-09-25] MEDS ORDERED: NA CHLORIDE 0.9% 1,000 ML ONE (13:16)
[2024-09-25] MEDS ORDERED: DIPHENHYDRAMINE 50 MG/ML VIAL ONE (13:16)
[2024-09-25] MEDS ORDERED: METOCLOPRAMIDE 10 MG/2mL INJ ONE (13:16)
[2024-09-25] MEDS ORDERED: KETOROLAC 30 MG/ML INJ ONE (13:16)
[2024-09-25 13:25] LABS: Absolute Monocytes 0.5 K/uL (0.1-1.3); Absolute Neutrophil 5.2 K/uL (1.8-8.0); Basophils % 0.6 % (0-1.3); Eosinophils % 0.2 % (0-4.4); Hematocrit 47.2 % (36.0-45.0); Hemoglobin 15.9 g/dL (12.0-15.0); Lymphocytes % 25.7 % (15.3-44.8); MCHC 33.7 g/dL (32.0-36.0); MPV 9.5 fL (7.6-11.3); Monocytes % 6.7 % (3.3-12.3); Neutrophils % 66.8 % (41.7-73.7); PT Prothrombin Time 12.7 SECONDS (9.4-12.5); Platelets 238 thou/uL (152-406); Protime INR 1.14; RBC Red Blood Cell Count 4.97 M/uL (3.86-4.86); Red Cell Distribution Width 13.1 % (12.1-15.2)
[2024-09-25 13:33] LABS: Specific Gravity 1.005 (1.005-1.030); Sqamous Epithelial <5 /HPF (None Seen); Urine Bacteria None Seen /HPF (<20); Urine Bilirubin NEGATIVE (Negative); Urine Blood Trace (Negative); Urine Clarity Clear (Clear); Urine Color Colorless (Yellow); Urine Culture Reflex Order NOT NEEDED; Urine Glucose NEGATIVE (Negative); Urine Ketones NEGATIVE (Negative); Urine Microscopic Reflex YN ORDER UMIC; Urine Nitrite NEGATIVE (Negative); Urine Protein NEGATIVE (Negative); Urine RBC <5 /HPF (None Seen); Urine Urobilinogen Normal (Normal); Urine WBC <5 /HPF (<5); Urine pH 6.5 (5.0-7.0)
[2024-09-25 13:42] LABS: ALT/SGPT 45 U/L (13-56); AST/SGOT 26 U/L (15-37); Albumin 3.9 g/dL (3.4-5.0); Albumin/Globulin Ratio 1.1 (1.1-1.8); Alkaline Phosphatase 67 U/L (45-117); Anion Gap 7.8 mEq/L (5.0-15.0); BUN Blood Urea Nitrogen 11 mg/dL (7-18); Bicarbonate 25 mEq/L (21-32); Bilirubin Total 0.6 mg/dL (0.2-1.0); Globulin 3.6 g/dL (2.3-3.5); Glomerular Filtration Rate 57 ml/min (=/>90); Glucose Level 117 mg/dL (74-106); Lipase 30 U/L (13-75); Magnesium 2.1 mg/dL (1.6-2.4); NT PRO-BNP 645 pg/mL (<125); Potassium 3.8 mEq/L (3.5-5.1); Protein, Total 7.5 g/dL (6.4-8.2); Sodium Level 138 mEq/L (136-145); Troponin High Sensitivity 5.1 pg/mL (<58.9)
[2024-09-25 13:43] LABS: Bilirubin Direct < 0.2 mg/dL (0-0.2); Bilirubin Indirect, Calculated 0.4 mg/dL (0.2-0.8)
--- NOTE | 2024-09-25 14:16 | RAD REPORT ---
EXAMINATION: ONE VIEW CHEST XR CLINICAL INDICATION: Female, 64 years old.,COUGH TECHNIQUE: Frontal chest projection is submitted. Examination is limited by patient positioning and t echnique. COMPARISON: 10/31/2020 FINDINGS: The lungs are well inflated. Streaky right infrahilar opacities. No pneumothorax or sizable effusion . The heart is normal in size. Mediastinal contours are unremarkable. IMPRESSION: Progressive streaky right infrahilar opacities, may relate to atelectasis or early pneumonia.
--- NOTE | 2024-09-25 14:38 | RAD REPORT ---
EXAM: CT Head Brain Wo Cont HISTORY: HEADACHE COMPARISON: 02/26/2012 TECHNIQUE: Multiple contiguous axial images were obtained for a CT of the brain without contrast. Sag ittal and coronal reformats were performed. One or more of the following dose reduction techniques were used: Automated exposure control, adjus tment of the mA and kV according to patient size, and iterative reconstruction. Unless otherwise specified, incidental findings do not require dedicated imaging follow-up. FINDINGS: No evidence of hydrocephalus, intracranial hemorrhage, or extra-axial fluid collection. The brain is normal in morphology. The calvarium is intact. The visualized paranasal sinuses and mastoid air cells are essentially clear . IMPRESSION: No evidence of acute intracranial abnormality.
[2024-09-25] MEDS ORDERED: MORPHINE 4 MG/ML SYR ONE (14:47)
[2024-09-25] MEDS ORDERED: ONDANSETRON 4 MG/2 ML VIAL ONE (14:47)
[2024-09-25] MEDS ORDERED: AMLODIPINE 5 MG TAB ONE (15:45)
[2024-09-25] MEDS ORDERED: AZITHROMYCIN 250 MG TAB ONE (15:45)
--- NOTE | 2024-09-25 16:21 | RAD REPORT ---
EXAMINATION: CT Abdomen Pelvis Wo Contrast CLINICAL INDICATION: Female, 64 years old. ABD PAIN TECHNIQUE: CT abdomen and pelvis was performed, without IV contrast, as per department protocol. Axia l, sagittal and coronal reconstructions were obtained. One or more of the following dose reduction techniques were used: Automated exposure control, adjustment of the mA and kV according to the patien t size, and iterative reconstruction. Unless otherwise specified, incidental findings do not require dedicated imaging follow-up. COMPARISON: 05/05/2022 FINDINGS: The lack of intravenous contrast limits the sensitivity of this exam for evaluation of solid visceral organs, vascular structures, and retroperitoneum. LOWER CHEST: The visualized lung bases are clear. LIVER: Normal in size and contour. Diffuse parenchymal hypoattenuation suggesting steatosis. No focal lesion. BILIARY SYSTEM: Status post cholecystectomy. SPLEEN: Normal size. No focal lesion. PANCREAS: No mass, ductal dilation, or stephania-pancreatic fluid. ADRENALS: Ovoid 1.2 cm right adrenal nodule is stable, not well characterized. KIDNEYS AND URETERS: Normal size and contour. No hydronephrosis. URINARY BLADDER: Normal contour. GASTROINTESTINAL TRACT: No evidence of bowel obstruction, significant free fluid, free air or abscess . Mild colonic diverticulosis without evidence of acute diverticulitis. Sequelae of distal partial colectomy. APPENDIX: Appendix not visualized, but no inflammatory changes in region of appendix. LYMPH NODES: No lymphadenopathy. MUSCULOSKELETAL: No acute or suspicious osseous abnormality. ADDITIONAL FINDINGS: None. IMPRESSION: No acute or concerning abnormalities in the abdomen or pelvis, with evaluation limited by lack of IV contrast. Stable findings as above.
--- NOTE | 2024-09-25 16:29 | RAD REPORT ---
EXAMINATION: CT Neck Angio CLINICAL INDICATION: Female, 64 years old. [facility] MAIN PAIN Bed Name: 5 TECHNIQUE: Axial CT images were obtained from the aortic arch to the skull base after intravenous con trast utilizing angiographic protocol. Multiplanar reformats, as well as 3D post-processing (maximum intensity projection images, volume rendered images and/or shaded surface rendered images) w ere generated and reviewed. One or more of the following dose reduction techniques were used: Automated exposure control, adjustment of the mA and/or kV according to patient size, and/or iterativ e reconstruction. Unless otherwise specified, incidental findings do not require dedicated imaging follow-up. COMPARISON: No prior exam. FINDINGS: AORTA: The imaged aortic arch is normal. Normal three-vessel configuration of the arch. CCA: No artifact The common carotid arteries are patent and normal in caliber. ICA/ECA: Bilateral internal and external carotid arteries are patent. There is no significant interna l carotid artery stenosis. VERTEBRAL: The cervical vertebral arteries are patent to the skull base. Vertebral arteries are codom inant. SOFT TISSUE: No significant neck soft tissue abnormalities. The visualized lung apices are clear. 3D images confirm these findings. IMPRESSION: No significant flow abnormality of the neck vessels is identified. NASCET criteria used to quantify ICA stenosis, with the following grading scheme: Mild 0-49% stenosis Moderate 50-69% stenosis Severe 70-99% stenosis Reference: [place] Symptomatic Carotid Endarterectomy Trial Collaborators; Clinton COPELAND, Lucie BRADY, Jose RB, et al. Beneficial effect of carotid endarterectomy in symptomatic patients with high-grade carotid stenosis. N Engl J Med. 1990Jun 30;325(7):445-53.
--- NOTE | 2024-09-25 16:31 | RAD REPORT ---
EXAMINATION: CTA HEAD CLINICAL INDICATION: Female, 64 years old. PAIN TECHNIQUE: Axial CT images were obtained through the head after intravenous contrast utilizing angiog raphic protocol with 3D post-processing (maximum intensity projection images, volume rendered images and/or shaded surface rendered images). One or more of the following dose reduction technique s were used: Automated exposure control, adjustment of the mA and/or kV according to patient size, and/or iterative reconstruction. Unless otherwise specified, incidental findings do not require dedic ated imaging follow-up. COMPARISON: No prior exam. FINDINGS: ICA: The petrous, cavernous, and supraclinoid segments of the bilateral internal carotid arteries are normal. DONA: Anterior cerebral arteries are normal bilaterally. The anterior communicating artery is patent. MCA: Middle cerebral arteries are normal bilaterally. VACUUM SPINDLE SANDER: Posterior cerebral arteries are normal bilaterally. Vertebrobasilar: The vertebral arteries are patent. The basilar artery is normal in appearance. 3D images confirm these findings. IMPRESSION: Normal head CTA.
--- NOTE | 2024-09-25 17:04 | RAD REPORT ---
EXAM: CT Thorax W/ Con CLINICAL INDICATION: Female, 64 years old. [facility] MAIN NA COUGH Bed Name: 5 N TECHNIQUE: Routine CT scan of the chest with intravenous contrast. One or more of the following dose reduction techniques were used: Automated exposure control, adjustment of the mA and/or kV according to patient size, and/or iterative reconstruction. Unless otherwise specified, incidental fi ndings do not require dedicated imaging follow-up. COMPARISON: 08/23/2009 FINDINGS: LUNGS: Airways are clear. No evidence of airspace or interstitial process apart from subcentimeter salgado bpleural dependent left groundglass opacities, may relate to atelectasis. No nodules. PLEURA: No pleural effusion. No pneumothorax. MEDIASTINUM AND LYMPH NODES: No mediastinal mass or fluid collection. Normal size mediastinal, hilar, and axillary lymph nodes. OSSEOUS STRUCTURES AND CHEST WALL: Intact. UPPER ABDOMEN: No significant abnormalities. IMPRESSION: No acute or significant abnormalities.
--- NOTE | 2024-09-25 17:10 | EDPHYS ---
Physician Documentation [facility] Name: Shannan Shore Age: 64 yrs Sex: Female : 1960 Arrival Date: 09/25/2024 Time: 12:25 Bed 5 Private MD: [facility] Physician Robinson Fajardo HPI: 09/25 15:31 This 64 yrs old Female presents to ER via Ambulatory with complaints of High danielle Blood Pressure, Headache, Nausea. 15:31 The patient has elevated blood pressure and discovered this at home. Onset: The danielle symptoms/episode began/occurred yesterday. Modifying factors: The symptoms are aggravated by activity, The symptoms are alleviated by remaining still. Severity of symptoms: At its worst the blood pressure was mild, moderate, in the emergency department the blood pressure is unchanged. The patient has experienced similar episodes in the past, a few times. Historical: - Allergies: 12:38 PENICILLINS; mb9 12:38 Levaquin; mb9 - Home Meds: 12:54 Lisinopril Oral [Active]; amitriptyline Oral [Active]; mb9 - PMHx: 12:38 Chronic pain; complex regional pain syndrome; mb9 12:54 Hypertensive disorder; Diverticulitis; mb9 - PSHx: 12:54 Ligation of fallopian tube; Cholecystectomy; ankle; coloen resection; mb9 - Immunization history:: Adult Immunizations up to date. - Infectious Disease History:: Denies. - Social history:: Smoking status: Patient denies any tobacco usage or history of. ROS: 15:31 Constitutional: Negative for fever, chills, and weight loss, Eyes: Negative for injury, danielle pain, redness, and discharge, ENT: Negative for injury, pain, and discharge, Neck: Negative for injury, pain, and swelling, Cardiovascular: Negative for chest pain, palpitations, and edema, Respiratory: Negative for shortness of breath, cough, wheezing, and pleuritic chest pain, Abdomen/GI: Negative for abdominal pain, nausea, vomiting, diarrhea, and constipation, Back: Negative for injury and pain, : Negative for injury, bleeding, discharge, and swelling, MS/Extremity: Negative for injury and deformity, Skin: Negative for injury, rash, and discoloration, Psych: Negative for depression, anxiety, suicide ideation, homicidal ideation, and hallucinations, Allergy/Immunology: Negative for hives, rash, and allergies, Endocrine: Negative for neck swelling, polydipsia, polyuria, polyphagia, and marked weight changes, Hematologic/Lymphatic: Negative for swollen nodes, abnormal bleeding, and unusual bruising, 15:31 Neuro: Positive for headache, Exam: 15:31 Constitutional: This is a well developed, well nourished patient who is awake, alert, danielle and in no acute distress. Head/Face: Normocephalic, atraumatic. Eyes: Pupils equal round and reactive to light, extra-ocular motions intact. Lids and lashes normal. Conjunctiva and sclera are non-icteric and not injected. Cornea within normal limits. Periorbital areas with no swelling, redness, or edema. ENT: Nares patent. No nasal discharge, no septal abnormalities noted. Tympanic membranes are normal and external auditory canals are clear. Oropharynx with no redness, swelling, or masses, exudates, or evidence of obstruction, uvula midline. Mucous membranes moist. Neck: Trachea midline, no thyromegaly or masses palpated, and no cervical lymphadenopathy. Supple, full range of motion without nuchal rigidity, or vertebral point tenderness. No Meningismus. Chest/axilla: Normal chest wall appearance and motion. Nontender with no deformity. No lesions are appreciated. Cardiovascular: Regular rate and rhythm with a normal S1 and S2. No gallops, murmurs, or rubs. Normal PMI, no JVD. No pulse deficits. Respiratory: Lungs have equal breath sounds bilaterally, clear to auscultation and percussion. No rales, rhonchi or wheezes noted. No increased work of breathing, no retractions or nasal flaring. Abdomen/GI: Soft, non-tender, with normal bowel sounds. No distension or tympany. No guarding or rebound. No evidence of tenderness throughout. Back: No spinal tenderness. No costovertebral tenderness. Full range of motion. Female : Normal external genitalia. Skin: Warm, dry with normal turgor. Normal color with no rashes, no lesions, and no evidence of cellulitis. MS/ Extremity: Pulses equal, no cyanosis. Neurovascular intact. Full, normal range of motion. Neuro: Awake and alert, GCS 15, oriented to person, place, time, and situation. Cranial nerves II-XII grossly intact. Motor strength 5/5 in all extremities. Sensory grossly intact. Cerebellar exam normal. Normal gait. Psych: Awake, alert, with orientation to person, place and time. Behavior, mood, and affect are within normal limits. 15:31 ECG was reviewed by the Attending Physician. 15:33 Neck: ROM/movement: is normal, is supple, without pain, no range of motions danielle limitations, no meningismus, no nuchal rigidity, negative Brudzinski's sign, negative Kernig's sign, limited range of motion, is not appreciated, Meningeal signs: are not present, Lymph nodes: no appreciated lymphadenopathy, 15:38 Musculoskeletal/extremity: DVT Exam: No signs of deep vein thrombosis. no pain, no danielle swelling, no tenderness, negative Homans' sign noted on exam, no appreciated bluish discoloration, no erythema, no increased warmth, Vital Signs: 12:52 BP 189 / 90; Pulse 73; Resp 18; Temp 98; Pulse Ox 100% ; Weight 78.47 kg; Height 5 ft. mb9 7 in. ; Pain 8/10; 14:55 BP 155 / 78; Pulse 74; Resp 18; Pulse Ox 100% on R/A; mb9 17:06 BP 138 / 74; Pulse 70; Resp 16; Pulse Ox 100% on R/A; mb9 12:52 Body Mass Index 27.10 (78.47 kg, 170.18 cm) mb9 12:52 Pain Scale: Adult mb9 Harper Coma Score: 15:33 Eye Response: spontaneous(4). Motor Response: obeys commands(6). Verbal Response: danielle oriented(5). Total: 15. MDM: 12:39 Medical Screening Exam initiated danielle 15:33 Differential diagnosis: cluster headache, cerebral vascular accident, epidural danielle hematoma, hypertensive crisis, Malignant HTN, CVA, intracerebral hemorrhage. Data reviewed: vital signs, nurses notes, lab test result(s), EKG, radiologic studies, CT scan, plain films. Consideration of Admission/Observation Escalation of care including admission/observation considered. I considered the following discharge prescriptions or medication management in the emergency department Medications were administered in the Emergency Department. See MAR. Independent interpretation of the following test(s) in the Emergency Department EKG: See my EKG interpretation above. Test considered but Not performed: MRI: NO MRI BRAIN. Historians other than the Patient: PT WELL INFORMED. Care significantly affected by the following chronic conditions: Hypertension, CHRONIC PAIN, DIVERTICULITIS. Counseling: I had a detailed discussion with the patient and/or guardian regarding the historical points, exam findings, and any diagnostic results supporting the discharge/admit diagnosis, the presence of at least one elevated blood pressure reading (>120/80) during this emergency department visit, lab results, radiology results, the need for outpatient follow up, for definitive care, a stretching machine tender frame, a family practitioner. 09/25 13:00 Order name: Basic Metabolic Panel; Complete Time: 14:00 [facility] 09/25 13:00 Order name: CBC with Diff; Complete Time: 14:00 [facility] 09/25 13:00 Order name: LFT's; Complete Time: 14:00 [facility] 09/25 13:00 Order name: Magnesium; Complete Time: 14:00 [facility] 09/25 13:00 Order name: NT PRO-BNP; Complete Time: 14:00 [facility] 09/25 13:00 Order name: PT-INR; Complete Time: 14:00 [facility] 09/25 13:00 Order name: Troponin HS; Complete Time: 14:00 [facility] 09/25 13:00 Order name: Lipase; Complete Time: 14:00 [facility] 09/25 13:00 Order name: Urinalysis w/ reflexes; Complete Time: 14:00 [facility] 09/25 13:00 Order name: XRAY Chest (1 view); Complete Time: 15:27 [facility] 09/25 13:00 Order name: CT Head Brain wo Cont; Complete Time: 15:27 [facility] 09/25 14:02 Order name: CT Neck Angio; Complete Time: 16:38 [facility] 09/25 14:02 Order name: CT Abd/Pelvis - Without Contrast; Complete Time: 16:38 [facility] 09/25 14:07 Order name: Head angio; Complete Time: 16:38 [facility] 09/25 15:30 Order name: CT Chest W/ Con; Complete Time: 17:09 [facility] 09/25 13:00 Order name: Cardiac monitoring; Complete Time: 13:02 [facility] 09/25 13:00 Order name: EKG - Nurse/Tech; Complete Time: 13:02 [facility] 09/25 13:00 Order name: IV Saline Lock; Complete Time: 13:02 [facility] 09/25 13:00 Order name: Labs collected and sent; Complete Time: 13:02 [facility] 09/25 13:00 Order name: O2 Per Protocol; Complete Time: : danielle 09/25 13:00 Order name: O2 Sat Monitoring; Complete Time: : [facility] EC:31 Rate is 78 beats/min. Rhythm is regular. QRS [place] is Normal. [place] interval is normal. QRS danielle interval is normal. QT interval is normal. No Q waves. No ST changes noted. Clinical impression: Normal ECG and No evidence of ischemia. Interpreted by me. Reviewed by me. Administered Medications: 13:15 Drug: metoCLOPramide IVP 10 mg IVP once; over 1 to 2 minutes Route: IVP; Site: left mb9 forearm; 14:56 Follow up: Response: No adverse reaction mb9 13:18 Drug: Ketorolac IVP 30 mg IVP once Route: IVP; Site: left forearm; mb9 14:56 Follow up: Response: No adverse reaction mb9 13:20 Drug: diphenhydrAMINE IVP 50 mg IVP once Route: IVP; Site: left forearm; mb9 14:56 Follow up: Response: No adverse reaction mb9 13:21 Drug: NS 0.9% IV 1000 ml IV at 1000 ml once; to be given as a bolus over 60 minutes mb9 Route: IV; Rate: 1000 ml; Site: left forearm; 14:56 Follow up: Response: No adverse reaction; IV Status: Completed infusion mb9 14:45 Drug: Ondansetron IVP 4 mg IVP once; over 2 minutes Route: IVP; Site: left forearm; mb9 15:45 Follow up: Response: No adverse reaction mb9 14:55 Drug: morphine IVP or IV 4 mg IVP once over 4 mins Route: IVP; Infused Over: 4 mins; mb9 Site: left forearm; 15:46 Follow up: Response: No adverse reaction mb9 16:04 Drug: Norvasc PO 5 mg PO once Route: PO; mb9 17:35 Follow up: Response: No adverse reaction mb9 16:04 Drug: AZITHromycin PO 500 mg PO once Route: PO; mb9 17:35 Follow up: Response: No adverse reaction mb9 Disposition Summary: 09/25/24 17:10 Discharge Ordered Notes: Location: Home danielle Problem: new danielle Symptoms: have improved danielle Condition: Stable danielle Diagnosis - Headache danielle - Essential (primary) hypertension danielle - Abnormal findings on diagnostic imaging of other specified body structures - CHEST danielle XRAY, RIGHT INFRAHILAR STREAK OPACITY Followup: danielle - With: Private Physician - When: 2 - 3 days - Reason: Recheck today's complaints, Continuance of care, Re-evaluation by your physician Followup: danielle - With: Keagan Carrlol MD - When: 2 - 3 days - Reason: Recheck today's complaints, Re-evaluation by your physician Followup: danielle - With: Jayy Ji MD - When: 2 - 3 days - Reason: Recheck today's complaints, Re-evaluation by your physician Discharge Instructions: - Discharge Summary Sheet danielle - General Headache Without Cause danielle - Hypertension, Adult danielle - Nausea, Adult danielle - Hypertension, Adult, [id number] danielle - How to Take Your Blood Pressure, [id number] danielle - Incidental Abnormal Radiological Finding danielle - Aspirin and Your Heart danielle - General Headache Without Cause, [id number] danielle - Managing Your Hypertension danielle Forms: - Medication Reconciliation Form danielle - Antibiotic Education danielle - Prescription Opioid Use danielle - Patient Portal Instructions danielle - Leadership Thank You Letter danielle Prescriptions: - Fioricet with Codeine [id number] mg Oral capsule - take 2 capsule ORAL route every 4 hours do not exceed 6 caps per day; 18 danielle capsule; Refills: 0, Product Selection Permitted - ondansetron 4 mg Oral Tablet,disintegrating - take 1 tablet ORAL route every 6-8 hours for 5 days; 20 tablet; Refills: 0, danielle Product Selection Permitted - Norvasc 5 mg Oral Tablet - take 1 tablet ORAL route once daily; 20 tablet; Refills: 0, Product Selection danielle Permitted - Zithromax 500 mg Oral Tablet - take 1 tablet ORAL route once daily for 5 days; 5 tablet; Refills: 0, Product danielle Selection Permitted Signatures: Dispatcher [employer] Robinson Morales MD MD cha Wilkerson, Erin Santillan RN RN mb9 Corrections: (The following items were deleted from the chart) 13:00 13:00 BASIC METABOLIC PANEL+C.LAB.BRZ ordered. EDMS EDMS 13:00 13:00 CBC+H.LAB.BRZ ordered. EDMS EDMS 13:00 13:00 HEPATIC FUNCTION+C.LAB.BRZ ordered. EDMS EDMS 13:00 13:00 MAGNESIUM+C.LAB.BRZ ordered. EDMS EDMS 13: 13:00 PROBNP+C.LAB.BRZ ordered. EDMS EDMS : 13:00 PROTIME (+INR)+COAG.LAB.BRZ ordered. EDMS EDMS 13: 13:00 Troponin High Sensitivity+C.LAB.BRZ ordered. EDMS EDMS : 13:00 LIPASE+C.LAB.BRZ ordered. EDMS EDMS : 13:00 Urinalysis+U.LAB.BRZ ordered. EDMS EDMS : 13:00 Chest Single View+RAD.RAD.BRZ ordered. EDMS EDMS 13: 13:01 Head Brain Wo Cont+CT.RAD.BRZ ordered. EDMS EDMS 15:31 15:31 Thorax W/ Con+CT.RAD.BRZ ordered. EDMS EDMS
--- NOTE | 2024-09-25 17:10 | ER ---
Nurse's Notes [facility] Lucy Name: Shannan Shore Age: 64 yrs Sex: Female : 1960 Arrival Date: 09/25/2024 Time: 12:25 Bed 5 Private MD: Diagnosis: Headache;Essential (primary) hypertension;Abnormal findings on diagnostic imaging of other specified body structures-CHEST XRAY, RIGHT INFRAHILAR STREAK OPACITY Presentation: 09/25 12:52 Chief complaint: Patient states: "I've had a headache since yesterday and when I mb9 checked my BP, it was higher than normal, 180s systolic. This morning, I feel nauseous, still have a headache, and some tunnel vision.". Coronavirus screen: Vaccine status: Patient reports receiving the 2nd dose of the covid vaccine. Ebola Screen: No symptoms or risks identified at this time. Initial Sepsis Screen: Does the patient meet any 2 criteria? No. Patient's initial sepsis screen is negative. Does the patient have a suspected source of infection? No. Patient's initial sepsis screen is negative. Risk Assessment: Do you want to hurt yourself or someone else? Patient reports desire/thoughts of hurting themselves or someone else. Provider notified. Onset of symptoms was September 24, 2024. 12:52 Acuity: GEORGETTE 3 mb9 12:52 Method Of Arrival: Ambulatory mb9 Triage Assessment: 12:56 Headache History: The patient has had previous headaches and this one is similar to mb9 previous episodes. General: Appears in no apparent distress. Behavior is calm, cooperative. Pain: Complains of pain in head Pain does not radiate. Pain currently is 8 out of 10 on a pain scale. Quality of pain is described as throbbing, Pain began 1 day ago. Is intermittent, Also complains of nausea. EENT: No signs and/or symptoms were reported regarding the EENT system. Neuro: Raza Agitation-Sedation Scale (RASS): 0 - Alert and Calm Level of Consciousness is awake, alert, obeys commands, Oriented to person, place, time, situation, Appropriate for age Reports headache in entire frontal area. Cardiovascular: Patient's skin is warm and dry. Respiratory: Airway is patent Respiratory effort is even, unlabored, Respiratory pattern is regular, symmetrical. GI: Abdomen is round non-distended, Bowel sounds present X 4 quads. Abd is soft and non tender X 4 quads. : No signs and/or symptoms were reported regarding the genitourinary system. Derm: Skin is pink, warm \\T\\ dry. Musculoskeletal: Range of motion: intact in all extremities. Historical: - Allergies: 12:38 PENICILLINS; mb9 12:38 Levaquin; mb9 - Home Meds: 12:54 Lisinopril Oral [Active]; amitriptyline Oral [Active]; mb9 - PMHx: 12:38 Chronic pain; complex regional pain syndrome; mb9 12:54 Hypertensive disorder; Diverticulitis; mb9 - PSHx: 12:54 Ligation of fallopian tube; Cholecystectomy; ankle; coloen resection; mb9 - Immunization history:: Adult Immunizations up to date. - Infectious Disease History:: Denies. - Social history:: Smoking status: Patient denies any tobacco usage or history of. Screenin:57 [facility] ED Fall Risk Assessment (Adult) History of falling in the last 3 months, mb9 including since admission No falls in past 3 months (0 pts) Confusion or Disorientation No (0 pts) Intoxicated or Sedated No (0 pts) Impaired Gait No (0 pts) Mobility Assist Device Used No (0 pt) Altered Elimination No (0 pt) Score/Fall Risk Level 0 - 2 = Low Risk Oriented to surroundings, Maintained a safe environment, Educated pt \\T\\ family on fall prevention, incl call for assistance when getting out of bed. Abuse screen: Denies threats or abuse. Nutritional screening: No deficits noted. Tuberculosis screening: No symptoms or risk factors identified. Assessment: 12:57 Reassessment: see triage assessment. mb9 14:56 Reassessment: No changes from previously documented assessment. Patient and/or family mb9 updated on plan of care and expected duration. Pain level reassessed. Patient is alert, oriented x 3, equal unlabored respirations, skin warm/dry/pink. 17:00 Reassessment: No changes from previously documented assessment. Patient and/or family mb9 updated on plan of care and expected duration. Pain level reassessed. Patient is alert, oriented x 3, equal unlabored respirations, skin warm/dry/pink. 17:35 Reassessment: No changes from previously documented assessment. Patient and/or family mb9 updated on plan of care and expected duration. Pain level reassessed. Patient is alert, oriented x 3, equal unlabored respirations, skin warm/dry/pink. Vital Signs: 12:52 BP 189 / 90; Pulse 73; Resp 18; Temp 98; Pulse Ox 100% ; Weight 78.47 kg; Height 5 ft. mb9 7 in. ; Pain 8/10; 14:55 BP 155 / 78; Pulse 74; Resp 18; Pulse Ox 100% on R/A; mb9 17:06 BP 138 / 74; Pulse 70; Resp 16; Pulse Ox 100% on R/A; mb9 12:52 Body Mass Index 27.10 (78.47 kg, 170.18 cm) mb9 12:52 Pain Scale: Adult mb9 Brandi Coma Score: 15:33 Eye Response: spontaneous(4). Motor Response: obeys commands(6). Verbal Response: danielle oriented(5). Total: 15. ED Course: 12:30 Patient arrived in ED. mg5 12:36 Erin Lopez RN is Primary Nurse. mb9 12:39 Robinson Fajardo MD is Attending Physician. danielle 12:52 Arm band placed on. mb9 12:54 Triage completed. mb9 12:55 Patient requests pain medication. mb9 12:57 Placed in gown. Bed in low position. Call light in reach. Side rails up X 1. Provided mb9 Education on: press call light if needing anything. Client placed on continuous cardiac and pulse oximetry monitoring. NIBP monitoring applied. night monitor on. 12:57 EKG done, by ED staff, reviewed by Robinson Fajardo MD. mb9 12:57 No provider procedures requiring assistance completed. mb9 13:21 Initial lab(s) drawn, by ma, sent to lab. Urine collected: clean catch specimen, clear. mb9 Inserted saline lock: 22 gauge in left forearm, using aseptic technique. Blood collected. Flushed with 10 mL NS. 13:29 CT Head Brain wo Cont In Process Unspecified. EDMS 13:31 XRAY Chest (1 view) In Process Unspecified. EDMS 15:15 Patient requests pain medication. mb9 15:29 CT Abd/Pelvis - Without Contrast In Process Unspecified. EDMS 15:[address] via wheelchair. mb9 15:44 CT Neck Angio In Process Unspecified. EDMS 15:44 Head angio In Process Unspecified. EDMS 15:45 CT Chest W/ Con In Process Unspecified. EDMS 16:04 Patient requests pain medication. mb9 17:10 Keagan Carroll MD is Referral Physician. danielle 17:10 Jayy Ji MD is Referral Physician. danielle 17:35 IV discontinued, intact, bleeding controlled, No redness/swelling at site. Pressure mb9 dressing applied. Administered Medications: 13:15 Drug: metoCLOPramide IVP 10 mg IVP once; over 1 to 2 minutes Route: IVP; Site: left mb9 forearm; 14:56 Follow up: Response: No adverse reaction mb9 13:18 Drug: Ketorolac IVP 30 mg IVP once Route: IVP; Site: left forearm; mb9 14:56 Follow up: Response: No adverse reaction mb9 13:20 Drug: diphenhydrAMINE IVP 50 mg IVP once Route: IVP; Site: left forearm; mb9 14:56 Follow up: Response: No adverse reaction mb9 13:21 Drug: NS 0.9% IV 1000 ml IV at 1000 ml once; to be given as a bolus over 60 minutes mb9 Route: IV; Rate: 1000 ml; Site: left forearm; 14:56 Follow up: Response: No adverse reaction; IV Status: Completed infusion mb9 14:45 Drug: Ondansetron IVP 4 mg IVP once; over 2 minutes Route: IVP; Site: left forearm; mb9 15:45 Follow up: Response: No adverse reaction mb9 14:55 Drug: morphine IVP or IV 4 mg IVP once over 4 mins Route: IVP; Infused Over: 4 mins; mb9 Site: left forearm; 15:46 Follow up: Response: No adverse reaction mb9 16:04 Drug: Norvasc PO 5 mg PO once Route: PO; mb9 17:35 Follow up: Response: No adverse reaction mb9 16:04 Drug: AZITHromycin PO 500 mg PO once Route: PO; mb9 17:35 Follow up: Response: No adverse reaction mb9 Medication: 12:57 VIS not applicable for this client. mb9 Outcome: 17:10 Discharge ordered by . danielle 17:35 Discharged to home ambulatory, mb9 17:35 Condition: stable 17:35 Discharge instructions given to patient, Instructed on discharge instructions, follow up and referral plans. Demonstrated understanding of instructions, follow-up care, medications, Prescriptions given X 4, 17:36 Patient left the ED. mb9 Signatures: Dispatcher [employer] Robinson Morales MD MD cha Wilkerson, Erin Santillan RN RN [email or web address] Mre Hair 5
[2024-09-25 18:28] VITALS: TEMP 98; O2SAT 100
[2024-09-25 18:30] VITALS: BP 138/74
--- NOTE | 2024-09-26 12:05 | EKG ---
Test Date: 2024-09-25 Test Time: 12:48:13 Scout: MB MEASUREMENT RESULTS: Intervals: Rate: 78 WI: 154 QRSD: 86 QT: 360 QTc: 410 Mcintyre: P: 41 WI: 154 QRS: 57 T: 52 INTERPRETIVE STATEMENTS: Normal sinus rhythm with sinus arrhythmia Normal ECG Compared to ECG 10/31/2020 15:34:55 No significant changes Electronically Signed On 09-26-24 12:05:00 PHARMACY MANAGER by Bill Matuhr
== END 2024-09-25 17:36 | disposition home or self-care (01) ==
LOC: ER 12:25
DX: R51.9 Headache, unspecified (principal); I10 Essential (primary) hypertension; R93.89 Abnormal findings on diagnostic imaging of other specified body structures
CPT/HCPCS: 93005; 85025; 81001; 80048; 36415; 83735; 85610; 80076; 84484; 83690; 83880; 70450; 71260; 70496; 70498; 74176; 71045; Q9967; J2765; J1200; J2405; J7030; 96361; 96374; 96375; 99285

== ENCOUNTER 2025-01-18 13:33 | Emergency (ER) | payer OTHER ==
--- OUTSIDE RECORDS SUMMARY | 2025-01-18 13:36 | XMS REPORT | Continuity of Care Document ---
Author Name Unknown Address [address] [facility] [address] [place], [place] [id number] [place] [address] thconnect Address [address] [facility] [address] [place] [address] Care Team Providers Care Regional Safety Manager Name Role Phone Michelle Conte Attending Clinician Unavail able [email or web address]_S Attending Clinician Unavaila ble [email or web address]_S Admitting Clinician Unavaila ble Payers Payer Name Policy Type Policy Number Effective Date Expirati on Date Source [place]IC[place]: CED [facility] [id number] 2020 00:00:00 [employer] - RESERVE NATIONAL - INDIVIDUAL NON COMPREHENSIVE LIMITED BENEFITS [id number] Problems Condition Name Condition Details Condition Category Status Onset Date Resolution Date Last Treatment Date Treating Clinician Comments Source [id number] Essential hypertensi on Problem [facility] [id number] Other obesity due to excess calories Problem [facility] [id number] Hepatic steatosis Problem [facility] [id number] Chronic pain syndrome Problem [facility] [id number] Mixed hyperlipid emia Problem [facility] Interstiti al cystitis Interstiti al cystitis Problem [facility] Over[id number] EVELYN (generaliz ed anxiety disorder) Problem [facility] [id number] Body mass index [BMI] 30.0-30.9, adult Problem [facility] [id number] Complex regional pain syndrome type 1 of left lower extremity Problem [facility] [id number] Cigarette nicotine dependence without complicati on Problem [facility] [id number] Vitamin D deficiency Problem [facility] Tobacco user Nicotine dependence with current use Problem [facility] Allergies, Adverse Reactions, Alerts Allergy Name Allergy Type Status Severity Reaction(s) Onset Date Inactive Date Treating Clinician Comments Source [id number] Drug allergy Active Unknown [facility] Social History Social Habit Start Date Stop Date Quantity Comments Source History of Tobacco Use 2000-11-15 00:00:00 Current Smoker [facility] Sex Assigned At [facility] Smoking Status Start Date Stop Date Source Current Smoker 2024-12-07 00:00:00 [facility] Medications Ordered Medication Name Filled Medication Name Start Date Stop Date Current Medication? Ordering Clinician Indication Dosage Frequency Signature (SIG) Comments Components Source Ciprofloxac in HCl 500 MG Ciprofloxac in HCl 500 MG 2023-0 8-14 00:00: 00 No 1{table t} BID Ciprofloxa mason HCl 500 MG Lisinopril 20 MG Lisinopril 20 MG 2023-0 5-17 00:00: 00 No 1{table t} BID Lisinopril 20 MG Metoprolol Succinate ER 25 MG Metoprolol Succinate ER 25 MG 4-0 5-17 00:00: 00 No 1{table t} QD Metoprolol Succinate ER 25 MG Lisinopril- hydroCHLORO thiazide 10-12.5 MG Lisinopril- hydroCHLORO thiazide 10-12.5 MG 2023-0 3-26 00:00: 00 No 1{table t} QD Lisinopril -hydroCHLO ROthiazide 10-12.5 MG Pravastatin Sodium 20 MG Pravastatin Sodium 20 MG No 1{table t} QD Pravastati n Sodium 20 MG Amitriptyli ne HCl 50 MG Amitriptyli ne HCl 50 MG No 1{table t_at_be dtime} QD Amitriptyl ine HCl 50 MG Zepbound 2.5 MG/0.5ML Zepbound 2.5 MG/0.5ML No .5{ml} Zepbound 2.5 MG/0.5ML Pravastatin Sodium 10 MG Pravastatin Sodium 10 MG No Pravastati n Sodium 10 MG Morphine Sulfate 30 MG Morphine Sulfate 30 MG No 1{table t_as_ne eded} TID Morphine Sulfate 30 MG Vitamin C Vitamin C No 1{ca psu le} BID Vitamin C Aloe Vera 500 MG Aloe Vera 500 [...] older - SDS - 0.5mL Unknown Completed [facility] Pneumovax (PPSV23) Pneumovax (PPSV23) Unknown Completed [facility] Afluria (IIV4) - 3 years and older - SDS - 0.5mL Afluria (IIV4) - 3 years and older - SDS - 0.5mL Unknown Completed [facility] Pneumovax (PPSV23) Pneumovax (PPSV23) Unknown Completed [facility] Afluria (IIV4) - 3 years and older - SDS - 0.5mL Afluria (IIV4) - 3 years and older - SDS - 0.5mL Unknown Completed [facility] Pneumovax (PPSV23) Pneumovax (PPSV23) Unknown Completed [facility] Afluria (IIV4) - 3 years and older - SDS - 0.5mL Afluria (IIV4) - 3 years and older - SDS - 0.5mL Unknown Completed [facility] Pneumovax (PPSV23) Pneumovax (PPSV23) Unknown Completed [facility] Afluria (IIV4) - 3 years and older - SDS - 0.5mL Afluria (IIV4) - 3 years and older - SDS - 0.5mL Unknown Completed [facility] Pneumovax (PPSV23) Pneumovax (PPSV23) Unknown Completed [facility] Vital Signs Vital Name Observation Time Observation Value Comments S ource height 2024-10-04 10:45:00 67 [in_i] Commo n [facility] weight 2024-10-04 10:45:00 182 [lb_av] Comm on [facility] temperature 2024-10-04 10:45:00 98.4 [degF] Com mon [facility] bmi 2024-10-04 10:45:00 28.5 kg/m2 [facility] n [facility] oximetry 2024-10-04 10:45:00 99 % [facility] respiratory rate 2024-10-04 10:45:00 16 /min [facility] blood pressure systolic 2024-10-04 10:45:00 140 mm[Hg] Common [facility] blood pressure diastolic 2024-10-04 10:45:00 60 mm[Hg] Common [facility] height 2024-06-29 10:40:00 67 [in_i] Commo n [facility] weight 2024-06-29 10:40:00 175.4 [lb_av] Co mmon [facility] temperature 2024-06-29 10:40:00 98.5 [degF] Com mon [facility] bmi 2024-06-29 10:40:00 27.47 kg/m2 Comm on [facility] oximetry 2024-06-29 10:40:00 97 % Commo n [facility] respiratory rate 2024-06-29 10:40:00 17 /min [facility] blood pressure systolic 2024-06-29 10:40:00 140 mm[Hg] [facility] blood pressure diastolic 2024-06-29 10:40:00 78 mm[Hg] [facility] height 2024-06-10 11:00:00 67 [in_i] Commo n [facility] weight 2024-06-10 11:00:00 179.8 [lb_av] Co mmon [facility] temperature 2024-06-10 11:00:00 98 [degF] Comm on [facility] bmi 2024-06-10 11:00:00 28.16 kg/m2 Comm on [facility] oximetry 2024-06-10 11:00:00 98 % Commo n [facility] respiratory rate 2024-06-10 11:00:00 17 /min [facility] blood pressure systolic 2024-06-10 11:00:00 112 mm[Hg] [facility] blood pressure diastolic 2024-06-10 11:00:00 58 mm[Hg] [facility] height 2024-03-01 13:20:00 67 [in_i] Commo n [facility] weight 2024-03-01 13:20:00 188 [lb_av] Comm on [facility] temperature 2024-03-01 13:20:00 99.4 [degF] Com mon [facility] bmi 2024-03-01 13:20:00 29.44 kg/m2 Comm on [facility] oximetry 2024-03-01 13:20:00 100 % Commo n [facility] respiratory rate 2024-03-01 13:20:00 17 /min [facility] blood pressure systolic 2024-03-01 13:20:00 160 mm[Hg] [facility] blood pressure diastolic 2024-03-01 13:20:00 90 mm[Hg] [facility] Encounters Start Date/Time End Date/Time Encounter Type Admission Type Attending Clinicians Care Facility Care Department Encounter ID Source 2024-12-05 14:04:00 Outpatient Michelle Conte [facility]ML[facility] [id number] [facility] 2024-03-01 13:06:01 Outpatient Michelle Conte [facility] [id number] [facility] 2024-02-09 08:39:00 Outpatient Michelle Conte [facility] [id number] [facility] 2024-12-07 00:00:00 2024-12-07 00:00:00 OFFICE VISIT ESTAB PT LEVEL 4 [facility] ST[facility] [id number] [facility] 2024-10-04 00:00:00 2024-10-04 00:00:00 OFFICE VISIT ESTAB PT LEVEL 4 [facility] [id number] [facility] 2024-09-26 00:00:00 2024-09-26 00:00:00 (TEL) [facility]LMLC [facility] [id number] [facility] 2024-06-29 00:00:00 2024-06-29 00:00:00 OFFICE VISIT ESTAB PT LEVEL 3 [facility] ST[facility] [id number] [facility] 2024-06-28 00:00:00 2024-06-28 00:00:00 (TEL) STLMLC ST[facility] [id number] [facility] 2024-06-15 00:00:00 2024-06-15 00:00:00 (TEL) STLMLC ST[facility] [id number] [facility] 2024-06-10 00:00:00 2024-06-10 00:00:00 OFFICE VISIT ESTAB PT LEVEL 4 [facility]LMLC ST[facility] [id number] [facility] 2024-06-02 00:00:00 2024-06-02 00:00:00 (TEL) STLMLC STL[facility]C [id number] [facility] 2024-05-27 00:00:00 2024-05-27 00:00:00 (TEL) STLMLC STL[facility]C [id number] [facility] 2024-04-29 00:00:00 2024-04-29 00:00:00 (TEL) STLMLC STL[facility]C [id number] [facility] 2024-04-26 00:00:00 2024-04-26 00:00:00 (TEL) STLMLC STL[facility]C [id number] [facility] 2024-04-08 00:00:00 2024-04-08 00:00:00 (TEL) STLMLC ST[facility]C [id number] [facility] 2024-04-05 00:00:00 2024-04-05 00:00:00 (TEL) STLMLC STL[facility]C [id number] [facility] 2024-04-01 00:00:00 2024-04-01 00:00:00 (TEL) STLMLC ST[facility]C [id number] [facility] 2024-03-01 00:00:00 2024-03-01 00:00:00 OFFICE VISIT ESTAB PT LEVEL 4 [facility]LMLC ST[facility]C [id number] [facility] 2024-03-01 00:00:00 2024-03-01 00:00:00 [facility] [id number] [facility] 2024-02-10 00:00:00 2024-02-10 00:00:00 Outpatient [email or web address] diyala_S [facility] [id number] [facility]
--- NOTE | 2025-01-18 15:29 | RAD REPORT ---
EXAMINATION: Forearm Left CLINICAL INDICATION: Female, 64 years old. PAIN COMPARISON: No prior exam. VIEWS: As above FINDINGS: Distal radial impaction fracture with intra-articular extension, mild comminution, slight dorsal tilt and mild displacement. No dislocation No significant focal degenerative change. Other: n/a IMPRESSION: Distal radial impaction fracture with mild displacement and mild comminution.
--- NOTE | 2025-01-18 15:30 | RAD REPORT ---
EXAM: Chest Single View HISTORY: 64 years Female PAIN COMPARISON: 09/25/2024 FINDINGS: LUNGS/PLEURA: The lungs are clear. No pleural effusions or pneumothorax. No pulmonary edema. CARDIAC/MEDIASTINUM: Magnified by portable technique, but probably within normal limits. UPPER ABDOMEN: No significant abnormality. BONES: No acute abnormality. LINES/TUBES/OTHER: N/A IMPRESSION: No evidence of acute cardiopulmonary disease. No significant change from prior.
[2025-01-18] MEDS ORDERED: HYDROCODONE/APAP 7.5/325 MG TAB ONE (15:43)
[2025-01-18] MEDS ORDERED: KETOROLAC 30 MG/ML INJ ONE (15:43)
--- NOTE | 2025-01-18 15:59 | ER ---
Nurse's Notes [facility] Name: Shannan Shore Age: 64 yrs Sex: Female : 1960 Arrival Date: 01/18/2025 Time: 13:33 Bed DX3 Private MD: Diagnosis: Displaced distal radius fracture, left;Fall on same level, unspecified Presentation: 01/18 14:23 Chief complaint: Patient states: Had a fall today after lifting something heavy. Pt cm10 reports left arm pain that radiates up her arm to her elbow and pain to her fingers. Coronavirus screen: Client denies travel out of the [place] in the last 14 days. Ebola Screen: Patient denies travel to an Ebola-affected area in the 21 days before illness onset. Initial Sepsis Screen: Does the patient meet any 2 criteria? No. Patient's initial sepsis screen is negative. Does the patient have a suspected source of infection? No. Patient's initial sepsis screen is negative. Risk Assessment: Do you want to hurt yourself or someone else? Patient reports no desire to harm self or others. Onset of symptoms was January 18, 2025. 14:23 Method Of Arrival: Ambulatory cm10 14:23 Acuity: GEORGETTE 4 cm10 Triage Assessment: 14:29 General: Appears in no apparent distress. uncomfortable, Behavior is calm, cooperative. cm10 Pain: Complains of pain in left arm and left wrist and left lateral anterior chest and left lateral posterior chest. Neuro: No deficits noted. Level of Consciousness is awake, alert, obeys commands, Oriented to person, place, time, situation, Appropriate for age. Respiratory: No deficits noted. Airway is patent Respiratory effort is even, unlabored, Respiratory pattern is regular, symmetrical. Musculoskeletal: Reports pain in left arm. 16:24 Injury Description: Deformity sustained to left wrist. ll1 Historical: - Allergies: 14:27 Levaquin; cm10 14:27 PENICILLINS; cm10 - Home Meds: 14:27 Amitriptyline Oral [Active]; morphine 30 mg Oral TbER 1 tab every 8 hours [Active]; cm10 lisinopril Oral [Active]; tizanidine oral [Active]; - PMHx: 14:27 Chronic pain; complex regional pain syndrome; Diverticulitis; Hypertensive disorder; cm10 - PSHx: 14:27 Ankle; Cholecystectomy; coloen resection; Ligation of fallopian tube; cm10 - Immunization history:: Adult Immunizations up to date. - Infectious Disease History:: Denies. - Social history:: Smoking status: unknown. Screenin:23 [facility] ED Fall Risk Assessment (Adult) History of falling in the last 3 months, ll1 including since admission Yes- single mechanical fall (1 pt) Confusion or Disorientation No (0 pts) Intoxicated or Sedated No (0 pts) Impaired Gait No (0 pts) Mobility Assist Device Used No (0 pt) Altered Elimination No (0 pt) Score/Fall Risk Level 0 - 2 = Low Risk Maintained a safe environment, Hourly rounding (assess needs \T\ fall precautionary measures) done. Abuse screen: Denies threats or abuse. Nutritional screening: No deficits noted. Tuberculosis screening: No symptoms or risk factors identified. Assessment: 15:48 Reassessment: No changes from previously documented assessment. Patient and/or family ll1 updated on plan of care and expected duration. Pain level reassessed. Patient is alert, oriented x 3, equal unlabored respirations, skin warm/dry/pink. 16:23 Musculoskeletal: Circulation, motion, and sensation intact. Capillary refill < 3 ll1 seconds, in left fingers. Vital Signs: 14:23 BP 139 / 58; Pulse 97; Resp 15; Temp 97.2(TE); Pulse Ox 97% on R/A; Weight 77.56 kg; cm10 Height 5 ft. 6 in. ; Pain 10/10; 16:25 BP 131 / 61; Pulse 81; Resp 17; Pulse Ox 97% ; Pain 4/10; ll1 14:23 Body Mass Index 27.60 (77.56 kg, 167.64 cm) cm10 14:23 Pain Scale: Adult cm10 16:25 Pain Scale: Adult ll1 ED Course: 13:39 Patient arrived in ED. al6 13:46 Emely Bardales FNP-C is [facility]. kb 13:46 Robinson Fajardo MD is Attending Physician. kb 14:27 Triage completed. cm10 14:29 Arm band placed on right wrist. Patient placed in waiting room. cm10 15:17 Forearm Left XRAY In Process Unspecified. EDMS 15:17 Chest Single View XRAY In Process Unspecified. EDMS 15:58 Robinson Fajardo MD is Referral Physician. kb 15:58 Referral Physician role handed off by Robinson Fajardo MD kb 15:59 Bao Mendez MD is Referral Physician. kb 16:23 No provider procedures requiring assistance completed. Patient did not have IV access ll1 during this emergency room visit. 16:24 Patient has correct armband on for positive identification. Provided Education on: ll1 return to ED for worsening symptoms. Administered Medications: 15:47 Drug: Hydrocodone-Acetaminophen PO (7.5 mg-325 mg) 1 tabs PO once {Note: pain 9/10 RASS ll1 0.} Route: PO; 16:25 Follow up: Response: No adverse reaction ll1 15:47 Drug: Ketorolac IM 30 mg IM once Route: IM; Site: right deltoid; ll1 16:24 Follow up: Response: No adverse reaction; Pain is decreased ll1 Medication: 16:24 VIS not applicable for this client. ll1 Outcome: 15:59 Discharge ordered by MD. kb 16:24 Discharged to home ambulatory, ll1 16:24 Condition: stable 16:24 Discharge instructions given to patient, Instructed on discharge instructions, follow up and referral plans. Demonstrated understanding of instructions, follow-up care, splint care, 16:25 Patient left the ED. ll1 Signatures: Dispatcher [employer] Emely Matamoros, [facility] VELÁSQUEZP-Abhijit Vera RN RN ll1 Qing Knutson RN RN cm10 Jerrica Heredia al6
--- NOTE | 2025-01-18 16:00 | EDPHYS ---
Physician Documentation [facility] Name: Shannan Shore Age: 64 yrs Sex: Female : 1960 Arrival Date: 01/18/2025 Time: 13:33 Bed DX3 Private MD: ED Physician Robinson Fajardo HPI: 01/18 14:25 This 64 yrs old Female presents to ER via Unassigned with complaints of Arm Injury. 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 Denies hitting head, loc. States she has some discomfort to left lateral ribs. . Historical: - Allergies: 14:27 Levaquin; cm10 14:27 PENICILLINS; cm10 - Home Meds: 14:27 Amitriptyline Oral [Active]; morphine 30 mg Oral TbER 1 tab every 8 hours [Active]; cm10 lisinopril Oral [Active]; tizanidine oral [Active]; - PMHx: 14:27 Chronic pain; complex regional pain syndrome; Diverticulitis; Hypertensive disorder; cm10 - PSHx: 14:27 Ankle; Cholecystectomy; coloen resection; Ligation of fallopian tube; cm10 - Immunization history:: Adult Immunizations up to date. - Infectious Disease History:: Denies. - Social history:: Smoking status: unknown. ROS: 14:25 Constitutional: As per HPI kb Exam: 14:25 Constitutional: This is a well developed, well nourished patient who is awake, alert, kb and in no acute distress. Head/Face: Normocephalic, atraumatic. ENT: Moist Mucous membranes Cardiovascular: Regular rate Respiratory: Respirations even and unlabored. No increased work of breathing. Talking in full sentences Abdomen/GI: Soft, non-tender. No distention Skin: Warm, dry with normal turgor. Normal color. Neuro: Awake and alert, GCS 15, oriented to person, place, time, and situation. 14:25 Chest/axilla: Inspection: normal, Palpation: tenderness, that is mild, of the left lateral posterior chest and left lateral anterior chest, that totally reproduces the patient's complaints, 14:25 Musculoskeletal/extremity: Extremities: grossly normal except: noted in the left wrist: decreased ROM, deformity, pain, swelling, tenderness, ROM: limited active range of motion, Circulation is intact in all extremities. Sensation intact. Vital Signs: 14:23 BP 139 / 58; Pulse 97; Resp 15; Temp 97.2(TE); Pulse Ox 97% on R/A; Weight 77.56 kg; cm10 Height 5 ft. 6 in. ; Pain 10/10; 16:25 BP 131 / 61; Pulse 81; Resp 17; Pulse Ox 97% ; Pain 4/10; ll1 14:23 Body Mass Index 27.60 (77.56 kg, 167.64 cm) cm10 14:23 Pain Scale: Adult cm10 16:25 Pain Scale: Adult ll1 MDM: 13:46 Medical Screening Exam initiated kb 14:27 Differential diagnosis: fracture, contusion, sprain. Data reviewed: vital signs, nurses kb notes. 15:58 Counseling: I had a detailed discussion with the patient and/or guardian regarding the kb historical points, exam findings, and any diagnostic results supporting the discharge/admit diagnosis, radiology results, the need for outpatient follow up, a orthopedic surgeon, to return to the emergency department if symptoms worsen or persist or if there are any questions or concerns that arise at home. 01/18 14:28 Order name: Forearm Left XRAY; Complete Time: 15:30 kb 01/18 14:28 Order name: Chest Single View XRAY; Complete Time: 15:30 kb 01/18 14:28 Order name: Ice pack; Complete Time: 15:48 kb 01/18 15:33 Order name: Sugar Tong Forearm Splint; Complete Time: 16:08 kb 01/18 15:33 Order name: Sling; Complete Time: 16:08 kb Administered Medications: 15:47 Drug: Hydrocodone-Acetaminophen PO (7.5 mg-325 mg) 1 tabs PO once {Note: pain 9/10 RASS ll1 0.} Route: PO; 16:25 Follow up: Response: No adverse reaction ll1 15:47 Drug: Ketorolac IM 30 mg IM once Route: IM; Site: right deltoid; ll1 16:24 Follow up: Response: No adverse reaction; Pain is decreased ll1 Disposition Summary: 01/18/25 15:59 Discharge Ordered Notes: Location: Home kb Condition: Stable kb Diagnosis - Displaced distal radius fracture, left kb - Fall on same level, unspecified kb Followup: kb - With: Emergency Department - When: As needed - Reason: Worsening of condition Followup: kb - With: Bao Mendez MD - When: 2 - 3 days - Reason: Recheck today's complaints Discharge Instructions: - Discharge Summary Sheet kb - Radial Fracture kb Forms: - Medication Reconciliation Form kb - Antibiotic Education kb - Prescription Opioid Use kb - Patient Portal Instructions kb - Leadership Thank You Letter kb Signatures: Dispatcher [employer] EDEmely Barriga, ASSISTANT [employer] COACH-C ASSISTANT [employer]OM[employer] COACH-Abhijit Vera, RN RN ll1 Qing Knutson RN RN cm10
[2025-01-18 16:33] VITALS: TEMP 97.2; O2SAT 97
[2025-01-18 16:34] VITALS: BP 131/61
== END 2025-01-18 16:25 | disposition home or self-care (01) ==
LOC: ER 13:33
PROC: 2W3DX1Z Immobilization of Left Lower Arm using Splint (ICD-10-PCS; principal; 2025-01-18)
DX: S52.502A Unspecified fracture of the lower end of left radius, initial encounter for closed fracture (principal); W18.30XA Fall on same level, unspecified, initial encounter
CPT/HCPCS: 71045

== ENCOUNTER 2025-01-24 07:36 | Day surgery (SDC) | payer OTHER ==
[2025-01-24] MEDS: Ringers Lactate 1,000 ML IV ONE (08:15)
[2025-01-24] MEDS ORDERED: LIDOCAINE 1% MPF 5 ML VIAL ONE (09:07)
[2025-01-24] MEDS ORDERED: EPINEPHRINE 1 MG/ML VIAL ONE (09:07)
[2025-01-24] MEDS ORDERED: MIDAZOLAM HCL 2 MG/2 ML INJ ONE ×2 (09:07→09:37)
[2025-01-24] MEDS ORDERED: dexAMETHasone 10 MG/ML VIAL ONE ×2 (09:07→10:37)
[2025-01-24] MEDS ORDERED: FENTANYL CITR 100 MCG/2 ML ONE (09:07)
[2025-01-24] MEDS ORDERED: LIDOCAINE 2% MPF 5 ML VIAL ONE (10:05)
[2025-01-24] MEDS ORDERED: ONDANSETRON 4 MG/2 ML VIAL ONE (10:05)
[2025-01-24] MEDS ORDERED: propofoL 200 MG/20 ML VIAL IV ONE (10:05)
[2025-01-24] MEDS: CEFAZOLIN SODIUM 1 GM/VIAL ONE (10:47)
[2025-01-24 12:24] VITALS: O2SAT 98
--- NOTE | 2025-01-24 12:30 | OP ---
Date of Procedure: 01/24/2025 Surgeon: Bao Mendez MD Preoperative Diagnosis: Left comminuted intra-articular three-part distal radius fracture with media n nerve paresthesias. Postoperative Diagnosis: Left comminuted intra-articular three-part distal radius fracture with medi an nerve paresthesias. Procedures: 1. Open reduction, internal fixation of displaced intra-articular distal radius fracture with fixatio n of 3 fragments using the Acumed 2 volar radius plating set. 2. Open carpal tunnel release. Estimated Blood Loss: Less than 10 cc. Complications: No complications. Specimen: No pathology specimens sent. Indication For Operation: Ms. 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 She went to the emergency department where she was diagnosed with a complex comminuted di stal articular radius fracture. On seeing her in the office, she had numbness of all of her fingers. Her splint was loosened and she did have some return of sensation, but overnight said that she cont inued to have some numbness especially of the fourth finger and risks, benefits, and alternatives of open reduction, internal fixation with open carpal tunnel release were discussed with the patient. S he states she understands things as presented and wishes to proceed. Description Of Procedure: The patient was taken to the operating room, placed in supine position. G eneral anesthesia was obtained by staff. Following this, a well-padded tourniquet placed on superior left arm. Left upper extremity was then prepped and draped in the usual fashion for procedure. Aft er this, the arm was then elevated, but not exsanguinated. Tourniquet was raised. A standard volar approach of Arnoldo was made with a zigzag across the distal radius crease. The tendon of the flexor c arpi radialis was encountered. It was then shifted laterally to protect the radial nerve. The under lying sheath was then exploited and the tendon and muscle belly of the flexor pollicis longus was enc ountered. It was then shifted ulnarward to protect the median nerve. The pronator quadratus was enc ountered. It was then divided in its midsubstance and gently lifted off the volar portion of the rad ius. The fracture site was easily seen. C-arm was brought in to ensure good reduction with both int ernal and standard reduction techniques. Following this, the Acumed plate was selected and affixed t o the distal radius using the tunnel screw. This appeared to be in good position as the remainder of the distal pegs were placed. Care being taken not to penetrate the dorsal cortex of the distal radi us. After this, the remaining 2 screw are placed within the plate and attention was then turned to t he carpal tunnel. An incision was made which parallels the thenar crease and with a slight ulnar dev iation at the wrist crease, these 2 incisions do not connect with the skin. After this, the bipolar was used for meticulous hemostasis. The palmar fascia was divided longitudinally. Any obstructions over the transverse carpal ligament were then swept to the side and a small aide was made in the gilliland sverse carpal ligament. It was then divided in a proximal distal direction until no constricting ban ds. It was then divided in a distal to proximal direction until there were no constricting bands. S pecifically, there was no band on the carpal tunnel as it approaches the fracture site. After this, the incisions were carefully closed using nylon sutures. The patient was placed in a well-padded fiona rile dressing as well as a volar splint, awakened, and taken to recovery room in good condition. The re were no complications. SE/MODL Voice ID: [id number] Report ID: [id number]
[2025-01-24] MEDS ORDERED: HYDROCODONE/APAP 7.5/325 MG TAB ONE (12:45)
[2025-01-24] MEDS: HYDROCODONE/APAP 7.5/325 MG TAB PO ONE (12:49)
[2025-01-24 14:53] VITALS: BP 133/72; TEMP 97.3
== END 2025-01-24 13:23 | disposition home or self-care (01) ==
LOC: OR 07:36
PROVIDERS: ATTEND Orthopaedic Surgery
PROC: 01N50ZZ Release Median Nerve, Open Approach (ICD-10-PCS; 2025-01-24)
PROC: 0PSJ04Z Reposition Left Radius with Internal Fixation Device, Open Approach (ICD-10-PCS; principal; 2025-01-24 09:45)
DX: S52.572D Other intraarticular fracture of lower end of left radius, subsequent encounter for closed fracture with routine healing (principal); G56.02 Carpal tunnel syndrome, left upper limb
CPT/HCPCS: 25609; 64721; C1713 ×2; J2704 ×2; J2003 ×2; J2250; J3010; J1100 ×2; J0171; J2405; J7120; J0690; C1889